=== PATIENT | female | born 1970 | race Caucasian/White ===

== ENCOUNTER 2018-08-10 19:44 | Inpatient (IN) ==
[2018-08-10] MEDS ORDERED: 0.9 % Sodium Chloride 1,000 ML IVC ONE ×2 (19:55→22:04)
--- NOTE | 2018-08-10 20:18 | Emergency Department Note ---
Disposition Clinical Impression: Auditory hallucination Suicide attempt by multiple drug overdose Qualifiers: Encounter type: initial encounter Qualified Code(s): T50.902A - Poisoning by unspecified drugs, medicaments and biological substances, intentional self-harm, initial encounter Acetaminophen overdose Qualifiers: Encounter type: initial encounter Injury intent: intentional self-harm Qualified Code(s): T39.1X2A - Poisoning by 4-Aminophenol derivatives, inte ntional self-harm, initial encounter Leukocytosis Qualifiers: Leukocytosis type: unspecified Qualified Code(s): D72.829 - Elevated white blood cell count, unspecified Depression Qualifiers: Depression Type: unspecified Qualified Code(s): F32.9 - Major depressive disorder, single episode, unspecified Disposition: Still a Patient Condition: Serious Referrals: Chelsea Kraus CNP [Primary Care Provider] - Time of Disposition: 21:57 General Adult HPI - General Stated complaint: OD SI Time Seen by Provider: 08/10/18 19:53 Source: patient Limitations: no limitations Nursing Notes Reviewed: Yes Vital Signs Reviewed: Yes - History of Present Illness HPI Narrative: Patient is a 48-year-old female that presents emergency department for possible overdose and suicidal ideation. Patient states that she is been feeling depressed and was hearing voices been telling her not to take the pills however she felt like they are using reverse psychology so she took multiple lorazepam, Vicodin, gabapentin, Tylenol PM and lisinopril as well as metoprolol. Patient states that she is unsure exactly how much she took of each but estimates that she took 10-12 gabapentin, 4 Vicodin, 4Tylenol, and l 20 lisinopril and 20 metoprolol. Patient states that she is not having any homicidal ideations. Patient denies any visual hallucinations. Patient did report that she was having auditory hallucinations. Patient has ever having to have previous admission to the hospital for psychiatric reasons. - Related Data Home Medications Medication Instructions Recorded Confirmed RX: LORazepam [Ativan] 0.5 mg PO BID PRN 05/06/17 05/06/17 RX: Lisinopril [Zestril] 20 mg PO BID 05/06/17 05/06/17 RX: Metoprolol [Lopressor] 25 mg PO BID 05/06/17 05/06/17 Previous Rx's Medication Instructions Recorded RX: Nicotine Patch [Nicoderm] 14 mg TD DAILY #30 patch.td24 05/06/17 RX: Omeprazole [PriLOSEC] 20 mg PO DAILY@0630 #30 capsule. 05/06/17 RX: Sucralfate [Carafate] 1 gm PO QIDAC #120 tablet 05/06/17 Allergies Allergy/AdvReac Type Severity Reaction Status Date / Time hydrochlorothiazide Allergy See Verified 05/05/17 23:00 Comments Penicillins Allergy See Verified 05/05/17 23:00 Comments Sulfa (Sulfonamide Allergy See Verified 05/05/17 23:00 Antibiotics) Comments codeine AdvReac Nausea Verified 05/05/17 23:00 All systems ED: reviewed and negative except as stated. Constitutional: Reports: other (Getting tired) Cardiovascular: Denies: chest pain Respiratory: Denies: dyspnea Gastrointestinal: Denies: abdominal pain, nausea Past Medical History - Past Medical History Medical history: Reports: hypertension Surgical history: Reports: , cholecystectomy Psychiatric history: Reports: anxiety, depression - Social History Smoking Status: Current every day smoker Smokeless Tobacco Status: No Alcohol use: Reports: none Drug use: Reports: none Physical Exam - General Limitations: no limitations General appearance: alert, in no apparent distress - Head Head exam: atraumatic, normocephalic - Eye Eye exam: Present: normal appearance, EOMI - Neck Neck exam: Present: normal inspection, full ROM, trachea midline - Respiratory Respiratory exam: Present: normal lung sounds bilaterally. Absent: respiratory distress, wheezes - Cardiovascular Cardiovascular exam: Present: regular rate, normal rhythm, normal heart sounds, +S1, +S2 - Abdominal Exam Abdominal exam: Present: soft, Non-Tender, normal bowel sounds - Neurological Exam Neurological exam: Present: alert, oriented X3 - Psychiatric Psychiatric exam: Present: depressed, flat affect - Skin Skin exam: Present: warm, dry, intact Course Vital Signs O2 Sat by Pulse Oximetry 98 08/10/18 20:26 Temperature 98.2 F 08/10/18 21:15 Pulse Rate 72 08/10/18 21:15 Respiratory Rate 16 08/10/18 21:15 Blood Pressure 144/77 08/10/18 21:15 O2 Sat by Pulse Oximetry 98 08/10/18 21:15 Oxygen Delivery Oxygen Delivery Room Air Medical Decision Making - MDM Narrative Medical decision making narrative: Due to the patient presenting to the emergency department with reports of suicidal ideations and drug ingestion laboratory testing including urine tox, acetaminophen, salicylate, ethanol were obtained. The patient was given Narcan and IV fluids. The poison center was contacted and notified of the ingestions. Their main concern was the beta walker and possible Tylenol ingestion with the Vicodin and Tylenol PM. They recommended starting IV fluids and continue to monitor the patient. The patient has been stable throughout her initial stay here in the emergency department. Her laboratory testing has started to come back and her acetaminophen level shows 60. This is at approximately one hour level. We did contact poison control again to update them on the findings of the acetaminophen level and they had recommended continuing supportive care and repeating the level at 4 hours. If the level was greater than 150 we will provide the patient with NAC. They did not feel that the patient would need to be transferred due to the patient's liver enzymes being normal. We have the ability to provide the patient with NAC here at [facility] so there is not the necessity to transfer the patient to another facility. Due to the patient requiring a repeat acetaminophen level at 4 hours the patient will be signed out to the night team of Dr. Flores and Dr. Alfaro. Please see their documentation for further medical decision making and final disposition of the patient. - Medical Records Medical records reviewed: Yes I reviewed the patient's medical records. - Lab Data Lab results reviewed: Yes I reviewed the patient's lab results. Result diagrams: 08/10/18 20:09 08/10/18 20:09 Lab Results 08/10/18 08/10/18 08/10/18 Range/Units 20:09 20:09 20:09 WBC 11.7 H (4.3-11.1) K/mcL RBC 5.10 H (3.82-4.97) M/mcL Hgb 16.5 H (11.5-15.4) g/dL Hct 47.7 H (35.3-44.9) % MCV 93.5 (83.0-100.0) fL MCH 32.4 (28.0-33.3) pg MCHC 34.6 (31.6-35.5) g/dL RDW 13.5 (11.5-14.5) % Plt Count 253 (140-400) K/mcL MPV 9.5 (9.4-12.4) fL Immature Gran % 0.4 (0-4) % Seg Neutrophils % 72.7 % Lymphocytes % 20.5 % Monocytes % 5.7 % Eosinophils % 0.3 % Basophils % 0.4 % Neutrophils # 8.5 (1.6-8.9) K/mcL Lymphocytes # 2.4 (0.6-4.6) K/mcL Monocytes # 0.7 (0.0-1.3) K/mcL Eosinophils # 0.0 (0.0-0.6) K/mcL Basophils # 0.1 (0.0-0.2) K/mcL PT (9.4-12.1) Seconds INR Sodium 140 (136-145) mEq/L Potassium 3.5 (3.5-5.1) mEq/L Chloride 105 (98-107) mEq/L Carbon Dioxide 26 (23-29) mEq/L BUN 9 (6-20) mg/dL Creatinine 0.80 (0.60-1.20) mg/dL Est GFR ( Amer) > 60 (> 60) Est GFR (Non-Af Amer) > 60 (> 60) BUN/Creatinine Ratio 11 (6-26) Glucose 107 H (70-105) mg/dL Calculated Osmolality 289 (280-300) Calcium 9.0 (8.6-10.3) mg/dL Total Bilirubin 0.6 (0.3-1.0) mg/dL Direct Bilirubin 0.1 (0.0-0.2) mg/dL Indirect Bilirubin 0.5 (0.0-1.2) mg/dL AST 21 (13-39) Units/L ALT 18 (7-52) Units/L Alkaline Phosphatase 95 (34-104) Units/L Troponin I < 0.03 (< 0.04) ng/mL Serum Total Protein 6.0 L (6.4-8.9) g/dL Albumin 4.2 (3.5-5.7) g/dL Globulin 1.8 L (2.4-3.5) g/dL Albumin/Globulin Ratio 2.3 H (1.1-2.2) TSH 2.096 (0.340-5.600) mcIU/mL Salicylates < 2.5 L (15.0-30.0) mg/dL Acetaminophen 60 H (10-20) mcg/mL Ethyl Alcohol < 10 (Less than 10) mg/dL 08/10/18 Range/Units 20:09 WBC (4.3-11.1) K/mcL RBC (3.82-4.97) M/mcL Hgb (11.5-15.4) g/dL Hct (35.3-44.9) % MCV (83.0-100.0) fL MCH (28.0-33.3) pg MCHC (31.6-35.5) g/dL RDW (11.5-14.5) % Plt Count (140-400) K/mcL MPV (9.4-12.4) fL Immature Gran % (0-4) % Seg Neutrophils % % Lymphocytes % % Monocytes % % Eosinophils % % Basophils % % Neutrophils # (1.6-8.9) K/mcL Lymphocytes # (0.6-4.6) K/mcL Monocytes # (0.0-1.3) K/mcL Eosinophils # (0.0-0.6) K/mcL Basophils # (0.0-0.2) K/mcL PT 11.4 (9.4-12.1) Seconds INR 1.0 Sodium (136-145) mEq/L Potassium (3.5-5.1) mEq/L Chloride (98-107) mEq/L Carbon Dioxide (23-29) mEq/L BUN (6-20) mg/dL Creatinine (0.60-1.20) mg/dL Est GFR ( Amer) (> 60) Est GFR (Non-Af Amer) (> 60) BUN/Creatinine Ratio (6-26) Glucose (70-105) mg/dL Calculated Osmolality (280-300) Calcium (8.6-10.3) mg/dL Total Bilirubin (0.3-1.0) mg/dL Direct Bilirubin (0.0-0.2) mg/dL Indirect Bilirubin (0.0-1.2) mg/dL AST (13-39) Units/L ALT (7-52) Units/L Alkaline Phosphatase (34-104) Units/L Troponin I (< 0.04) ng/mL Serum Total Protein (6.4-8.9) g/dL Albumin (3.5-5.7) g/dL Globulin (2.4-3.5) g/dL Albumin/Globulin Ratio (1.1-2.2) TSH (0.340-5.600) mcIU/mL Salicylates (15.0-30.0) mg/dL Acetaminophen (10-20) mcg/mL Ethyl Alcohol (Less than 10) mg/dL - Radiology Data Radiology results reviewed: Yes I reviewed the patient's radiology results. Chest X-Ray 08/10/18 19:56 IMPRESSION: No acute cardiopulmonary disease. D/ / Pj Boateng MD / Pj Boateng MD Interpreting Provider: Pj Boateng MD X-Ray 08/10/18 20:05 IMPRESSION: Nondiagnostic abdominal examination. D/ / Pj Boateng MD / Pj Boateng MD Interpreting Provider: Pj Boateng MD - EKG Data EKG #1 EKG attestation: Yes I reviewed and interpreted this EKG. EKG results narrative: EKG shows a sinus rhythm and rate of 81 bpm, WI interval of this is 154, QRS duration 83, QTC of 448. No evidence of STEMI and EKG. Attestation Statement - Attestation Attestation: I examined this patient and my medical decision making was reviewed with the Resident Physician. I agree with the documented findings, disposition and treatment plan as described except to the extent set forth below. We independently had [id number] contact with the patient. Patient presents for evaluation after overdose. Patient states she was trying to hurt herself. Patient was placed on suicide watch. She did state that she took multiple medications including gabapentin, Vicodin, lorazepam, lisinopril, metoprolol and Tylenol PM. Medical screening labs including acetaminophen and liver enzymes ordered. Patient will be watched in regards to her mental status and vital signs. Poison control be called. Patient will likely require admission to the hospital service prior to mental health evaluation. No acute distress, conversational, gets upset when talking about why she took the medications. Regular rhythm, clear to auscultation bilaterally, abdomen soft nontender palpation, no peripheral edema. Awake alert and oriented 3. No respiratory distress. No respiratory compromise.
[2018-08-10 20:21] LABS: Basophils # 0.1 K/mcL (0.0-0.2); Basophils % 0.4 %; Eosinophils % 0.3 %; Hematocrit 47.7 % (35.3-44.9); Hemoglobin 16.5 g/dL (11.5-15.4); Immature Granulocytes % 0.4 % (0-4); Lymphocytes # 2.4 K/mcL (0.6-4.6); Lymphocytes % 20.5 %; Mean Corpuscular HGB Conc 34.6 g/dL (31.6-35.5); Mean Corpuscular Hemoglobin 32.4 pg (28.0-33.3); Mean Corpuscular Volume 93.5 fL (83.0-100.0); Mean Platelet Volume 9.5 fL (9.4-12.4); Monocytes # 0.7 K/mcL (0.0-1.3); Monocytes % 5.7 %; Neutrophils # 8.5 K/mcL (1.6-8.9); Platelet Count 253 K/mcL (140-400); Red Cell Distribution Width 13.5 % (11.5-14.5); Segmented Neutrophils % 72.7 %
[2018-08-10] MEDS ORDERED: Naloxone 0.4 MG/ML INJ IVP ONE (20:29)
[2018-08-10 20:42] LABS: Acetaminophen 60 mcg/mL (10-20); Alanine Aminotransferase 18 Units/L (7-52); Albumin 4.2 g/dL (3.5-5.7); Albumin/Globulin Ratio 2.3 (1.1-2.2); Alkaline Phosphatase 95 Units/L (34-104); Aspartate Amino Transferase 21 Units/L (13-39); BUN/Creatinine Ratio 11 (6-26); Bilirubin,Direct 0.1 mg/dL (0.0-0.2); Bilirubin,Indirect 0.5 mg/dL (0.0-1.2); Bilirubin,Total 0.6 mg/dL (0.3-1.0); Blood Urea Nitrogen 9 mg/dL (6-20); Carbon Dioxide 26 mEq/L (23-29); Chloride 105 mEq/L (98-107); Ethanol < 10 mg/dL (Less than 10); Globulin 1.8 g/dL (2.4-3.5); Glucose 107 mg/dL (70-105); Osmolality,Calculated 289 (280-300); Potassium 3.5 mEq/L (3.5-5.1); Salicylate < 2.5 mg/dL (15.0-30.0); Sodium 140 mEq/L (136-145); eGFR For Non-African Americans > 60 (> 60)
[2018-08-10 20:44] LABS: Troponin I < 0.03 ng/mL (< 0.04)
[2018-08-10 20:57] LABS: Thyroid Stimulating Hormone 2.096 mcIU/mL (0.340-5.600)
[2018-08-10 21:14] LABS: Prothrombin Time 11.4 Seconds (9.4-12.1)
[2018-08-10] MEDS ORDERED: 0.9 % Sodium Chloride 1,000 ML ONE (21:59)
[2018-08-10 22:35] LABS: Bilirubin,Urine Negative (Negative); Blood,Urine Trace (Negative); Clarity,Urine Clear (Clear); Color,Urine Yellow (Yellow); Glucose,Urine (UA) Normal (Normal); Ketones,Urine Negative (Negative); Leukocyte Esterase,Urine Trace (Negative); Nitrite,Urine Negative (Negative); PH,Urine 5.5 pH Units (5.0-8.0); Protein,Urine 30 mg/dL (Neg-Trace); Specific Gravity,Urine 1.017 (1.010-1.025); Urobilinogen,Urine Normal (Normal)
[2018-08-10 22:37] LABS: Hyaline Casts,Urine Moderate per lpf (None-Few); Squamous Epithelial Cell,Urine Many per lpf (None-Few)
[2018-08-10 22:47] LABS: Amphetamine Screen,Urine Negative ng/mL (Cutoff=1000); Barbiturate Screen,Urine Negative ng/mL (Cutoff=200); Benzodiazepines Screen,Urine Negative ng/mL (Cutoff=200); Cannabinoid Screen,Urine Negative ng/mL (Cutoff = 50); Cocaine Screen,Urine Negative ng/mL (Cutoff= 300); Opiate Screen,Urine Positive ng/mL (Cutoff=300); Phencyclidine Screen,Urine Negative ng/mL (Cutoff=25)
[2018-08-10 22:51] LABS: Bacteria,Urine Few per hpf (None-Few)
--- NOTE | 2018-08-10 23:41 | Emergency Department Note ---
Overdose - MDM Narrative Medical decision making narrative: Accepted by Dr. Buckley. - Lab Data Lab results reviewed: Yes I reviewed the patient's lab results. Result diagrams: 08/10/18 20:09 08/10/18 20:09 Lab Results 08/10/18 08/10/18 08/10/18 Range/Units 20:09 20:09 20:09 WBC 11.7 H (4.3-11.1) K/mcL RBC 5.10 H (3.82-4.97) M/mcL Hgb 16.5 H (11.5-15.4) g/dL Hct 47.7 H (35.3-44.9) % MCV 93.5 (83.0-100.0) fL MCH 32.4 (28.0-33.3) pg MCHC 34.6 (31.6-35.5) g/dL RDW 13.5 (11.5-14.5) % Plt Count 253 (140-400) K/mcL MPV 9.5 (9.4-12.4) fL Immature Gran % 0.4 (0-4) % Seg Neutrophils % 72.7 % Lymphocytes % 20.5 % Monocytes % 5.7 % Eosinophils % 0.3 % Basophils % 0.4 % Neutrophils # 8.5 (1.6-8.9) K/mcL Lymphocytes # 2.4 (0.6-4.6) K/mcL Monocytes # 0.7 (0.0-1.3) K/mcL Eosinophils # 0.0 (0.0-0.6) K/mcL Basophils # 0.1 (0.0-0.2) K/mcL PT (9.4-12.1) Seconds INR Sodium 140 (136-145) mEq/L Potassium 3.5 (3.5-5.1) mEq/L Chloride 105 (98-107) mEq/L Carbon Dioxide 26 (23-29) mEq/L BUN 9 (6-20) mg/dL Creatinine 0.80 (0.60-1.20) mg/dL Est GFR ( Amer) > 60 (> 60) Est GFR (Non-Af Amer) > 60 (> 60) BUN/Creatinine Ratio 11 (6-26) Glucose 107 H (70-105) mg/dL Calculated Osmolality 289 (280-300) Calcium 9.0 (8.6-10.3) mg/dL Total Bilirubin 0.6 (0.3-1.0) mg/dL Direct Bilirubin 0.1 (0.0-0.2) mg/dL Indirect Bilirubin 0.5 (0.0-1.2) mg/dL AST 21 (13-39) Units/L ALT 18 (7-52) Units/L Alkaline Phosphatase 95 (34-104) Units/L Troponin I < 0.03 (< 0.04) ng/mL Serum Total Protein 6.0 L (6.4-8.9) g/dL Albumin 4.2 (3.5-5.7) g/dL Globulin 1.8 L (2.4-3.5) g/dL Albumin/Globulin Ratio 2.3 H (1.1-2.2) TSH 2.096 (0.340-5.600) mcIU/mL Urine Color (Yellow) Urine Clarity (Clear) Urine pH (5.0-8.0) pH Units Ur Specific [place] (1.010-1.025) Urine Protein (Neg-Trace) mg/dL Urine Glucose (UA) (Normal) mg/dL Urine Ketones (Negative) mg/dL Urine Blood (Negative) Urine Nitrite (Negative) Urine Bilirubin (Negative) Urine Urobilinogen (Normal) mg/dL Ur Leukocyte Esterase (Negative) Urine Microscopic RBC (0-3) per hpf Urine Microscopic WBC (0-3) per hpf Ur Squamous Epith Cells (None-Few) per lpf Urine Bacteria (None-Few) per hpf Hyaline Casts (None-Few) per lpf Urine Test (Negative) Salicylates < 2.5 L (15.0-30.0) mg/dL Urine Opiates Screen (Vimxwa=349) ng/mL Acetaminophen 60 H (10-20) mcg/mL Ur Barbiturates Screen (Dqfuie=579) ng/mL Ur Phencyclidine Scrn (Cutoff=25) ng/mL Ur Amphetamines Screen (Knbuxz=8160) ng/mL U Benzodiazepines Scrn (Qctzfn=546) ng/mL Urine Cocaine Screen (Cutoff= 300) ng/mL U Marijuana (THC) Screen (Cutoff = 50) ng/mL Ur Drug Screen Interp Ethyl Alcohol < 10 (Less than 10) mg/dL 08/10/18 08/10/18 08/10/18 Range/Units 20:09 22:08 22:08 WBC (4.3-11.1) K/mcL RBC (3.82-4.97) M/mcL Hgb (11.5-15.4) g/dL Hct (35.3-44.9) % MCV (83.0-100.0) fL MCH (28.0-33.3) pg MCHC (31.6-35.5) g/dL RDW (11.5-14.5) % Plt Count (140-400) K/mcL MPV (9.4-12.4) fL Immature Gran % (0-4) % Seg Neutrophils % % Lymphocytes % % Monocytes % % Eosinophils % % Basophils % % Neutrophils # (1.6-8.9) K/mcL Lymphocytes # (0.6-4.6) K/mcL Monocytes # (0.0-1.3) K/mcL Eosinophils # (0.0-0.6) K/mcL Basophils # (0.0-0.2) K/mcL PT 11.4 (9.4-12.1) Seconds INR 1.0 Sodium (136-145) mEq/L Potassium (3.5-5.1) mEq/L Chloride (98-107) mEq/L Carbon Dioxide (23-29) mEq/L BUN (6-20) mg/dL Creatinine (0.60-1.20) mg/dL Est GFR ( Amer) (> 60) Est GFR (Non-Af Amer) (> 60) BUN/Creatinine Ratio (6-26) Glucose (70-105) mg/dL Calculated Osmolality (280-300) Calcium (8.6-10.3) mg/dL Total Bilirubin (0.3-1.0) mg/dL Direct Bilirubin (0.0-0.2) mg/dL Indirect Bilirubin (0.0-1.2) mg/dL AST (13-39) Units/L ALT (7-52) Units/L Alkaline Phosphatase (34-104) Units/L Troponin I (< 0.04) ng/mL Serum Total Protein (6.4-8.9) g/dL Albumin (3.5-5.7) g/dL Globulin (2.4-3.5) g/dL Albumin/Globulin Ratio (1.1-2.2) TSH (0.340-5.600) mcIU/mL Urine Color Yellow (Yellow) Urine Clarity Clear (Clear) Urine pH 5.5 (5.0-8.0) pH Units Ur Specific [place] 1.017 (1.010-1.025) Urine Protein 30 H (Neg-Trace) mg/dL Urine Glucose (UA) Normal (Normal) mg/dL Urine Ketones Negative (Negative) mg/dL Urine Blood Trace H (Negative) Urine Nitrite Negative (Negative) Urine Bilirubin Negative (Negative) Urine Urobilinogen Normal (Normal) mg/dL Ur Leukocyte Esterase Trace H (Negative) Urine Microscopic RBC 3-5 H (0-3) per hpf Urine Microscopic WBC 3-5 H (0-3) per hpf Ur Squamous Epith Cells Many H (None-Few) per lpf Urine Bacteria Few (None-Few) per hpf Hyaline Casts Moderate H (None-Few) per lpf Urine Test (Negative) Salicylates (15.0-30.0) mg/dL Urine Opiates Screen Positive H (Hcldqt=429) ng/mL Acetaminophen (10-20) mcg/mL Ur Barbiturates Screen Negative (Bdazqz=596) ng/mL Ur Phencyclidine Scrn Negative (Cutoff=25) ng/mL Ur Amphetamines Screen Negative (Ofinaz=1022) ng/mL U Benzodiazepines Scrn Negative (Sjucry=024) ng/mL Urine Cocaine Screen Negative (Cutoff= 300) ng/mL U Marijuana (THC) Screen Negative (Cutoff = 50) ng/mL Ur Drug Screen Interp See Below Ethyl Alcohol (Less than 10) mg/dL 08/10/18 08/10/18 Range/Units 22:08 22:58 WBC (4.3-11.1) K/mcL RBC (3.82-4.97) M/mcL Hgb (11.5-15.4) g/dL Hct (35.3-44.9) % MCV (83.0-100.0) fL MCH (28.0-33.3) pg MCHC (31.6-35.5) g/dL RDW (11.5-14.5) % Plt Count (140-400) K/mcL MPV (9.4-12.4) fL Immature Gran % (0-4) % Seg Neutrophils % % Lymphocytes % % Monocytes % % Eosinophils % % Basophils % % Neutrophils # (1.6-8.9) K/mcL Lymphocytes # (0.6-4.6) K/mcL Monocytes # (0.0-1.3) K/mcL Eosinophils # (0.0-0.6) K/mcL Basophils # (0.0-0.2) K/mcL PT (9.4-12.1) Seconds INR Sodium (136-145) mEq/L Potassium (3.5-5.1) mEq/L Chloride (98-107) mEq/L Carbon Dioxide (23-29) mEq/L BUN (6-20) mg/dL Creatinine (0.60-1.20) mg/dL Est GFR ( Amer) (> 60) Est GFR (Non-Af Amer) (> 60) BUN/Creatinine Ratio (6-26) Glucose (70-105) mg/dL Calculated Osmolality (280-300) Calcium (8.6-10.3) mg/dL Total Bilirubin (0.3-1.0) mg/dL Direct Bilirubin (0.0-0.2) mg/dL Indirect Bilirubin (0.0-1.2) mg/dL AST (13-39) Units/L ALT (7-52) Units/L Alkaline Phosphatase (34-104) Units/L Troponin I (< 0.04) ng/mL Serum Total Protein (6.4-8.9) g/dL Albumin (3.5-5.7) g/dL Globulin (2.4-3.5) g/dL Albumin/Globulin Ratio (1.1-2.2) TSH (0.340-5.600) mcIU/mL Urine Color (Yellow) Urine Clarity (Clear) Urine pH (5.0-8.0) pH Units Ur Specific [place] (1.010-1.025) Urine Protein (Neg-Trace) mg/dL Urine Glucose (UA) (Normal) mg/dL Urine Ketones (Negative) mg/dL Urine Blood (Negative) Urine Nitrite (Negative) Urine Bilirubin (Negative) Urine Urobilinogen (Normal) mg/dL Ur Leukocyte Esterase (Negative) Urine Microscopic RBC (0-3) per hpf Urine Microscopic WBC (0-3) per hpf Ur Squamous Epith Cells (None-Few) per lpf Urine Bacteria (None-Few) per hpf Hyaline Casts (None-Few) per lpf Urine Test Negative (Negative) Salicylates (15.0-30.0) mg/dL Urine Opiates Screen (Vazcvd=647) ng/mL Acetaminophen 35 H (10-20) mcg/mL Ur Barbiturates Screen (Tiqvjf=774) ng/mL Ur Phencyclidine Scrn (Cutoff=25) ng/mL Ur Amphetamines Screen (Hsdrjt=1957) ng/mL U Benzodiazepines Scrn (Jbvcuq=654) ng/mL Urine Cocaine Screen (Cutoff= 300) ng/mL U Marijuana (THC) Screen (Cutoff = 50) ng/mL Ur Drug Screen Interp Ethyl Alcohol (Less than 10) mg/dL Overdose HPI - General Chief Complaint: ED Overdose Stated Complaint: OD SI Time Seen by Provider: 08/10/18 19:53 Source: patient Limitations: no limitations - History of Present Illness HPI Narrative: Patient who was signed out by day team. Please see their note for full history of present illness to include medications that the patient overdosed on an pill counts. Briefly, this is a 48-year-old female with history of psychiatric disease with suicidal ideation and attempt with the patient took multi drug overdose. This included Tylenol as well as Vicodin, gabapentin and old lorazepam. Initial Tylenol level was elevated. Repeat four-hour here on reevaluation was 35. Patient not requiring NEC. Patient remained somnolent but arousable on evaluation. GCS of 13. Patient's blood pressure remains map above 65 as well as rate in the 70s. There was concern that the patient apparently took metoprolol as well as lisinopril. Poison control involved. The patient will be admitted to intensive care at this time for close monitoring. Family made aware and agrees to plan. Patient given 2 L of IV fluids. The patient remains to protect her airway with 100% O2 saturations on room air. The patient will not be intubated unless she begins to decompensate. - Related Data Home Medications Medication Instructions Recorded Confirmed LORazepam [Ativan] 0.5 mg PO BID PRN 05/06/17 05/06/17 Lisinopril [Zestril] 20 mg PO BID 05/06/17 05/06/17 Metoprolol [Lopressor] 25 mg PO BID 05/06/17 05/06/17 Previous Rx's Medication Instructions Recorded Nicotine Patch [Nicoderm] 14 mg TD DAILY #30 patch.td24 05/06/17 Omeprazole [PriLOSEC] 20 mg PO DAILY@0630 #30 capsule. 05/06/17 Sucralfate [Carafate] 1 gm PO QIDAC #120 tablet 05/06/17 Allergies Allergy/AdvReac Type Severity Reaction Status Date / Time hydrochlorothiazide Allergy See Verified 05/05/17 23:00 Comments Penicillins Allergy See Verified 05/05/17 23:00 Comments Sulfa (Sulfonamide Allergy See Verified 05/05/17 23:00 Antibiotics) Comments codeine AdvReac Nausea Verified 05/05/17 23:00 All systems ED: reviewed and negative except as stated. Constitutional: Reports: other (Getting tired) Cardiovascular: Denies: chest pain Respiratory: Denies: dyspnea Gastrointestinal: Denies: abdominal pain, nausea Past Medical History - Past Medical History Source: obtained from family Medical history: Reports: hypertension Surgical history: Reports: , cholecystectomy Psychiatric history: Reports: anxiety, depression - Social History Smoking Status: Current every day smoker Smokeless Tobacco Status: No Alcohol use: Reports: none Drug use: Reports: none Physical Exam - General Limitations: altered mental status General appearance: other (somnolent) - Head Head exam: atraumatic, normocephalic, normal inspection - Eye Eye exam: Present: normal appearance, PERRL, EOMI - ENT ENT exam: normal exam, normal oropharynx, mucous membranes moist - Neck Neck exam: Present: normal inspection, full ROM, trachea midline - Chest Chest inspection: Present: normal inspection, symmetric chest wall rise - Respiratory Respiratory exam: Present: normal lung sounds bilaterally - Cardiovascular Cardiovascular exam: Present: regular rate, normal rhythm, normal heart sounds - Abdominal Exam Abdominal exam: Present: soft. Absent: distention, guarding, rebound - Extremities Exam Extremities exam: Present: normal inspection, full ROM. Absent: tenderness, pedal edema - Expanded Neurological Exam Coma Scale Eye Opening: To Pain Coma Scale Motor Response: Localizes to Pain Coma Scale Verbal Response: Confused Coma Scale Total: 11 Course Vital Signs O2 Sat by Pulse Oximetry 98 08/10/18 20:26 Temperature 97.8 F 08/10/18 23:45 Pulse Rate 70 08/10/18 23:45 Respiratory Rate 11 08/10/18 23:45 Blood Pressure 145/93 08/10/18 23:45 O2 Sat by Pulse Oximetry 100 08/10/18 23:45 Oxygen Delivery Oxygen Delivery Room Air Disposition Clinical Impression: Auditory hallucination Suicide attempt by multiple drug overdose Qualifiers: Encounter type: initial encounter Qualified Code(s): T50.902A - Poisoning by unspecified drugs, medicaments and biological substances, intentional self-harm, initial encounter Acetaminophen overdose Qualifiers: Encounter type: initial encounter Injury intent: intentional self-harm Qualified Code(s): T39.1X2A - Poisoning by 4-Aminophenol derivatives, intentional self-harm, initial encounter Leukocytosis Qualifiers: Leukocytosis type: unspecified Qualified Code(s): D72.829 - Elevated white blood cell count, unspecified Depression Qualifiers: Depression Type: unspecified Qualified Code(s): F32.9 - Major depressive disorder, single episode, unspecified Disposition: Admitted As Inpatient Condition: Undetermined Referrals: Chelsea Kraus CNP [Primary Care Provider] - Time of Disposition: 00:19
--- NOTE | 2018-08-11 00:02 | Emergency Department Note ---
Disposition Clinical Impression: Auditory hallucination Suicide attempt by multiple drug overdose Qualifiers: Encounter type: initial encounter Qualified Code(s): T50.902A - Poisoning by unspecified drugs, medicaments and biological substances, intentional self-harm, initial encounter Acetaminophen overdose Qualifiers: Encounter type: initial encounter Injury intent: intentional self-harm Qualified Code(s): T39.1X2A - Poisoning by 4-Aminophenol derivatives, inte ntional self-harm, initial encounter Leukocytosis Qualifiers: Leukocytosis type: unspecified Qualified Code(s): D72.829 - Elevated white blood cell count, unspecified Depression Qualifiers: Depression Type: unspecified Qualified Code(s): F32.9 - Major depressive disorder, single episode, unspecified Disposition: Admitted As Inpatient Condition: Serious General Adult HPI - General Chief complaint: ED Overdose Stated complaint: OD SI Time Seen by Provider: 08/10/18 19:53 Source: patient Mode of arrival: private vehicle Limitations: altered mental status Nursing Notes Reviewed: Yes Vital Signs Reviewed: Yes - History of Present Illness Pain Scale: 0 - Related Data Home Medications Medication Instructions Recorded Confirmed LORazepam [Ativan] 0.5 mg PO BID PRN 05/06/17 05/06/17 Lisinopril [Zestril] 20 mg PO BID 05/06/17 05/06/17 Metoprolol [Lopressor] 25 mg PO BID 05/06/17 05/06/17 Previous Rx's Medication Instructions Recorded Nicotine Patch [Nicoderm] 14 mg TD DAILY #30 patch.td24 05/06/17 Omeprazole [PriLOSEC] 20 mg PO DAILY@0630 #30 capsule. 05/06/17 Sucralfate [Carafate] 1 gm PO QIDAC #120 tablet 05/06/17 Allergies Allergy/AdvReac Type Severity Reaction Status Date / Time hydrochlorothiazide Allergy See Verified 05/05/17 23:00 Comments Penicillins Allergy See Verified 05/05/17 23:00 Comments Sulfa (Sulfonamide Allergy See Verified 05/05/17 23:00 Antibiotics) Comments codeine AdvReac Nausea Verified 05/05/17 23:00 Constitutional: Reports: other (Getting tired) Cardiovascular: Denies: chest pain Respiratory: Denies: dyspnea Gastrointestinal: Denies: abdominal pain, nausea Past Medical History - Past Medical History Medical history: Reports: hypertension Surgical history: Reports: , cholecystectomy Psychiatric history: Reports: anxiety, depression - Social History Smoking Status: Current every day smoker Smokeless Tobacco Status: No Alcohol use: Reports: none Drug use: Reports: none Physical Exam - General Limitations: altered mental status General appearance: other (somnolent) Course Vital Signs O2 Sat by Pulse Oximetry 98 08/10/18 20:26 Temperature 97.9 F 08/11/18 06:00 Pulse Rate 63 08/11/18 06:00 Respiratory Rate 16 08/11/18 06:00 Blood Pressure 161/96 08/11/18 06:00 O2 Sat by Pulse Oximetry 99 08/11/18 06:00 Oxygen Delivery Oxygen Delivery Room Air Medical Decision Making - Medical Records Medical records reviewed: Yes I reviewed the patient's medical records. - Lab Data Lab results reviewed: Yes I reviewed the patient's lab results. Result diagrams: 08/11/18 04:10 08/11/18 04:10 Lab Results 08/10/18 08/10/18 08/10/18 Range/Units 20:09 20:09 20:09 WBC 11.7 H (4.3-11.1) K/mcL RBC 5.10 H (3.82-4.97) M/mcL Hgb 16.5 H (11.5-15.4) g/dL Hct 47.7 H (35.3-44.9) % MCV 93.5 (83.0-100.0) fL MCH 32.4 (28.0-33.3) pg MCHC 34.6 (31.6-35.5) g/dL RDW 13.5 (11.5-14.5) % Plt Count 253 (140-400) K/mcL MPV 9.5 (9.4-12.4) fL Immature Gran % 0.4 (0-4) % Seg Neutrophils % 72.7 % Lymphocytes % 20.5 % Monocytes % 5.7 % Eosinophils % 0.3 % Basophils % 0.4 % Neutrophils # 8.5 (1.6-8.9) K/mcL Lymphocytes # 2.4 (0.6-4.6) K/mcL Monocytes # 0.7 (0.0-1.3) K/mcL Eosinophils # 0.0 (0.0-0.6) K/mcL Basophils # 0.1 (0.0-0.2) K/mcL PT (9.4-12.1) Seconds INR Sodium 140 (136-145) mEq/L Potassium 3.5 (3.5-5.1) mEq/L Chloride 105 (98-107) mEq/L Carbon Dioxide 26 (23-29) mEq/L BUN 9 (6-20) mg/dL Creatinine 0.80 (0.60-1.20) mg/dL Est GFR ( Amer) > 60 (> 60) Est GFR (Non-Af Amer) > 60 (> 60) BUN/Creatinine Ratio 11 (6-26) Glucose 107 H (70-105) mg/dL Calculated Osmolality 289 (280-300) Calcium 9.0 (8.6-10.3) mg/dL Total Bilirubin 0.6 (0.3-1.0) mg/dL Direct Bilirubin 0.1 (0.0-0.2) mg/dL Indirect Bilirubin 0.5 (0.0-1.2) mg/dL AST 21 (13-39) Units/L ALT 18 (7-52) Units/L Alkaline Phosphatase 95 (34-104) Units/L Troponin I < 0.03 (< 0.04) ng/mL Serum Total Protein 6.0 L (6.4-8.9) g/dL Albumin 4.2 (3.5-5.7) g/dL Globulin 1.8 L (2.4-3.5) g/dL Albumin/Globulin Ratio 2.3 H (1.1-2.2) TSH 2.096 (0.340-5.600) mcIU/mL Urine Color (Yellow) Urine Clarity (Clear) Urine pH (5.0-8.0) pH Units Ur Specific [place] (1.010-1.025) Urine Protein (Neg-Trace) mg/dL Urine Glucose (UA) (Normal) mg/dL Urine Ketones (Negative) mg/dL Urine Blood (Negative) Urine Nitrite (Negative) Urine Bilirubin (Negative) Urine Urobilinogen (Normal) mg/dL Ur Leukocyte Esterase (Negative) Urine Microscopic RBC (0-3) per hpf Urine Microscopic WBC (0-3) per hpf Ur Squamous Epith Cells (None-Few) per lpf Urine Bacteria (None-Few) per hpf Hyaline Casts (None-Few) per lpf Urine Test (Negative) Salicylates < 2.5 L (15.0-30.0) mg/dL Urine Opiates Screen (Ipctpq=347) ng/mL Acetaminophen 60 H (10-20) mcg/mL Ur Barbiturates Screen (Rcgqcr=174) ng/mL Ur Phencyclidine Scrn (Cutoff=25) ng/mL Ur Amphetamines Screen (Bthudt=7861) ng/mL U Benzodiazepines Scrn (Nmoouw=213) ng/mL Urine Cocaine Screen (Cutoff= 300) ng/mL U Marijuana (THC) Screen (Cutoff = 50) ng/mL Ur Drug Screen Interp Ethyl Alcohol < 10 (Less than 10) mg/dL 08/10/18 08/10/18 08/10/18 Range/Units 20:09 22:08 22:08 WBC (4.3-11.1) K/mcL RBC (3.82-4.97) M/mcL Hgb (11.5-15.4) g/dL Hct (35.3-44.9) % MCV (83.0-100.0) fL MCH (28.0-33.3) pg MCHC (31.6-35.5) g/dL RDW (11.5-14.5) % Plt Count (140-400) K/mcL MPV (9.4-12.4) fL Immature Gran % (0-4) % Seg Neutrophils % % Lymphocytes % % Monocytes % % Eosinophils % % Basophils % % Neutrophils # (1.6-8.9) K/mcL Lymphocytes # (0.6-4.6) K/mcL Monocytes # (0.0-1.3) K/mcL Eosinophils # (0.0-0.6) K/mcL Basophils # (0.0-0.2) K/mcL PT 11.4 (9.4-12.1) Seconds INR 1.0 Sodium (136-145) mEq/L Potassium (3.5-5.1) mEq/L Chloride (98-107) mEq/L Carbon Dioxide (23-29) mEq/L BUN (6-20) mg/dL Creatinine (0.60-1.20) mg/dL Est GFR ( Amer) (> 60) Est GFR (Non-Af Amer) (> 60) BUN/Creatinine Ratio (6-26) Glucose (70-105) mg/dL Calculated Osmolality (280-300) Calcium (8.6-10.3) mg/dL Total Bilirubin (0.3-1.0) mg/dL Direct Bilirubin (0.0-0.2) mg/dL Indirect Bilirubin (0.0-1.2) mg/dL AST (13-39) Units/L ALT (7-52) Units/L Alkaline Phosphatase (34-104) Units/L Troponin I (< 0.04) ng/mL Serum Total Protein (6.4-8.9) g/dL Albumin (3.5-5.7) g/dL Globulin (2.4-3.5) g/dL Albumin/Globulin Ratio (1.1-2.2) TSH (0.340-5.600) mcIU/mL Urine Color Yellow (Yellow) Urine Clarity Clear (Clear) Urine pH 5.5 (5.0-8.0) pH Units Ur Specific [place] 1.017 (1.010-1.025) Urine Protein 30 H (Neg-Trace) mg/dL Urine Glucose (UA) Normal (Normal) mg/dL Urine Ketones Negative (Negative) mg/dL Urine Blood Trace H (Negative) Urine Nitrite Negative (Negative) Urine Bilirubin Negative (Negative) Urine Urobilinogen Normal (Normal) mg/dL Ur Leukocyte Esterase Trace H (Negative) Urine Microscopic RBC 3-5 H (0-3) per hpf Urine Microscopic WBC 3-5 H (0-3) per hpf Ur Squamous Epith Cells Many H (None-Few) per lpf Urine Bacteria Few (None-Few) per hpf Hyaline Casts Moderate H (None-Few) per lpf Urine Test (Negative) Salicylates (15.0-30.0) mg/dL Urine Opiates Screen Positive H (Qsoqno=738) ng/mL Acetaminophen (10-20) mcg/mL Ur Barbiturates Screen Negative (Agudbn=544) ng/mL Ur Phencyclidine Scrn Negative (Cutoff=25) ng/mL Ur Amphetamines Screen Negative (Yyubau=7152) ng/mL U Benzodiazepines Scrn Negative (Gqeund=308) ng/mL Urine Cocaine Screen Negative (Cutoff= 300) ng/mL U Marijuana (THC) Screen Negative (Cutoff = 50) ng/mL Ur Drug Screen Interp See Below Ethyl Alcohol (Less than 10) mg/dL 08/10/18 08/10/18 Range/Units 22:08 22:58 WBC (4.3-11.1) K/mcL RBC (3.82-4.97) M/mcL Hgb (11.5-15.4) g/dL Hct (35.3-44.9) % MCV (83.0-100.0) fL MCH (28.0-33.3) pg MCHC (31.6-35.5) g/dL RDW (11.5-14.5) % Plt Count (140-400) K/mcL MPV (9.4-12.4) fL Immature Gran % (0-4) % Seg Neutrophils % % Lymphocytes % % Monocytes % % Eosinophils % % Basophils % % Neutrophils # (1.6-8.9) K/mcL Lymphocytes # (0.6-4.6) K/mcL Monocytes # (0.0-1.3) K/mcL Eosinophils # (0.0-0.6) K/mcL Basophils # (0.0-0.2) K/mcL PT (9.4-12.1) Seconds INR Sodium (136-145) mEq/L Potassium (3.5-5.1) mEq/L Chloride (98-107) mEq/L Carbon Dioxide (23-29) mEq/L BUN (6-20) mg/dL Creatinine (0.60-1.20) mg/dL Est GFR ( Amer) (> 60) Est GFR (Non-Af Amer) (> 60) BUN/Creatinine Ratio (6-26) Glucose (70-105) mg/dL Calculated Osmolality (280-300) Calcium (8.6-10.3) mg/dL Total Bilirubin (0.3-1.0) mg/dL Direct Bilirubin (0.0-0.2) mg/dL Indirect Bilirubin (0.0-1.2) mg/dL AST (13-39) Units/L ALT (7-52) Units/L Alkaline Phosphatase (34-104) Units/L Troponin I (< 0.04) ng/mL Serum Total Protein (6.4-8.9) g/dL Albumin (3.5-5.7) g/dL Globulin (2.4-3.5) g/dL Albumin/Globulin Ratio (1.1-2.2) TSH (0.340-5.600) mcIU/mL Urine Color (Yellow) Urine Clarity (Clear) Urine pH (5.0-8.0) pH Units Ur Specific [place] (1.010-1.025) Urine Protein (Neg-Trace) mg/dL Urine Glucose (UA) (Normal) mg/dL Urine Ketones (Negative) mg/dL Urine Blood (Negative) Urine Nitrite (Negative) Urine Bilirubin (Negative) Urine Urobilinogen (Normal) mg/dL Ur Leukocyte Esterase (Negative) Urine Microscopic RBC (0-3) per hpf Urine Microscopic WBC (0-3) per hpf Ur Squamous Epith Cells (None-Few) per lpf Urine Bacteria (None-Few) per hpf Hyaline Casts (None-Few) per lpf Urine Test Negative (Negative) Salicylates (15.0-30.0) mg/dL Urine Opiates Screen (Rihlkr=343) ng/mL Acetaminophen 35 H (10-20) mcg/mL Ur Barbiturates Screen (Zytxvu=123) ng/mL Ur Phencyclidine Scrn (Cutoff=25) ng/mL Ur Amphetamines Screen (Ufblin=2153) ng/mL U Benzodiazepines Scrn (Hrkczk=727) ng/mL Urine Cocaine Screen (Cutoff= 300) ng/mL U Marijuana (THC) Screen (Cutoff = 50) ng/mL Ur Drug Screen Interp Ethyl Alcohol (Less than 10) mg/dL - Radiology Data Radiology results reviewed: Yes I reviewed the patient's radiology results. Chest X-Ray 08/10/18 19:56 IMPRESSION: No acute cardiopulmonary disease. D/ / Pj Boateng MD / Pj Boateng MD Interpreting Provider: Pj Boateng MD X-Ray 08/10/18 20:05 IMPRESSION: Nondiagnostic abdominal examination. D/ / Pj Boateng MD / Pj Boateng MD Interpreting Provider: Pj Boateng MD Critical Care Time Critical Care Time: Yes Total Critical Care Time: 45 Attestation: Critical care performed: Time is exclusive of separately billable procedures. Time includes: direct patient care, patient reassessment, coordination of patient care, interpretation of data (laboratory data, radiology data, and respiratory data), review of patient's medical records, medical consultation and documentation of patient care. Procedures included in critical care time: Procedures excluded from critical care time: Attestation Statement - Attestation Attestation: I, Fady Alfaro MD, personally evaluated this patient and discussed their management with the resident physician. I reviewed the resident's note and agree with the documented findings, medical decision making, and plan of care. This patient was signed out at shift change from Dr. Castillo and Dr. Middleton. Christo jain refer to their notes for complete details of the history and physical examination. Patient presented with an intentional multiple drug overdose. Her initial acetaminophen level was 60. At shift change patient is still being observed and awaiting a repeat four-hour postingestion acetaminophen level. She will need admitted by the hospitalist until medically cleared for psychiatric evaluation. Patient very drowsy and sleepy but does respond to physical stimuli. On examination patient is a well-developed well-nourished female. She is very drowsy and sleepy but responds to sternal rub. No cyanosis or diaphoresis. Vital signs are normal. Oxygen saturation 100% on room air. Pulse in the 70s. Blood pressure stable. PERRLA. Breath sounds are equal bilaterally. Heart regular rate and rhythm. Abdomen soft with present bowel sounds. Labs and x-rays reviewed. The hospitalist, come a Dr. Buckley, was consulted and accepted admission of the patient.
--- NOTE | 2018-08-11 01:01 | Internal Med History&Physical ---
<MarcioNitish - Last Filed: 08/11/18 01:41> Date of Encounter: 08/11/18 Internal Medicine - H&P: Meds LORazepam [Ativan] 0.5 mg PO BID PRN 05/06/17 [History] Lisinopril [Zestril] 20 mg PO BID 05/06/17 [History] Metoprolol [Lopressor] 25 mg PO BID 05/06/17 [History] Nicotine Patch [Nicoderm] 14 mg TD DAILY #30 patch.td24 05/06/17 [Rx] Omeprazole [PriLOSEC] 20 mg PO DAILY@0630 #30 capsule. 05/06/17 [Rx] Sucralfate [Carafate] 1 gm PO QIDAC #120 tablet 05/06/17 [Rx] Allergy/AdvReac Type Severity Reaction Status Date / Time hydrochlorothiazide Allergy See Verified 05/05/17 23:00 Comments Penicillins Allergy See Verified 05/05/17 23:00 Comments Sulfa (Sulfonamide Allergy See Verified 05/05/17 23:00 Antibiotics) Comments codeine AdvReac Nausea Verified 05/05/17 23:00 All Systems PM: A 10-system review of systems was performed and is negative for pertinent findings except as documented above in the HPI. - Constitutional Vitals: Temp Pulse Resp BP Pulse Ox 98.0 F 63 20 132/93 100 08/11/18 01:00 08/11/18 01:00 08/11/18 01:00 08/11/18 01:00 08/11/18 01:00 Internal Med - H&P Results - Labs CBC & Chem 7: 08/10/18 20:09 08/10/18 20:09 Labs: Short CBC 08/10/18 Range/Units 20:09 WBC 11.7 H (4.3-11.1) K/mcL Hgb 16.5 H (11.5-15.4) g/dL Hct 47.7 H (35.3-44.9) % Plt Count 253 (140-400) K/mcL Neutrophils # 8.5 (1.6-8.9) K/mcL BMP 08/10/18 20:09 Sodium 140 Potassium 3.5 Chloride 105 Carbon Dioxide 26 BUN 9 Creatinine 0.80 Glucose 107 H Calcium 9.0 Cardiac Enzymes 08/10/18 Range/Units 20:09 Troponin I < 0.03 (< 0.04) ng/mL Liver Function 08/10/18 Range/Units 20:09 Total Bilirubin 0.6 (0.3-1.0) mg/dL Direct Bilirubin 0.1 (0.0-0.2) mg/dL AST 21 (13-39) Units/L ALT 18 (7-52) Units/L Alkaline Phosphatase 95 (34-104) Units/L Albumin 4.2 (3.5-5.7) g/dL Urine 08/10/18 Range/Units 22:08 Urine Color Yellow (Yellow) Urine Clarity Clear (Clear) Urine pH 5.5 (5.0-8.0) pH Units Ur Specific [place] 1.017 (1.010-1.025) Urine Protein 30 H (Neg-Trace) mg/dL Urine Glucose (UA) Normal (Normal) mg/dL - Impressions ITS Impressions Chest X-Ray 08/10/18 19:56 IMPRESSION: No acute cardiopulmonary disease. D/ / Pj Boateng MD / Pj Boateng MD Interpreting Provider: Pj Boateng MD X-Ray 08/10/18 20:05 IMPRESSION: Nondiagnostic abdominal examination. D/ / Pj Boateng MD / Pj Boateng MD Interpreting Provider: Pj Boateng MD - Time Spent With Patient Total time spent is greater than 50% in coordination of care (as documented) at patient's floor/unit and/or counseling patient: - Attending Attestation I performed a history and physical exam of the patient and discussed management with the resident. I reviewed the resident's note and agree with the documented findings and plan of care. Samantha Okeefe is a 48 year old woman with hypertension and psychotic disorder NOS admitted for auditory hallucinations and a suicidal attempt via overdose of multiple medications. Physical exam remarkable for a well-developed white woman sleeping comfortably and only minimally arousable to stimuli. She is protecting her airway. Lungs are clear to auscultation. Abdomen is soft and non-distended. Pulses present and synchronic. Skin warm. Unable to assess psych state at this time of my evaluation. Will admit to ICU for monitoring. Repeat APAP levels and check LFTs. No indication for NAC given the low levels. Monitor for bradycardia and QTc prolongation. Will need psych assessment once medically cleared. GRAYSON BRYANT. <Naomi Oliver - Last Filed: 08/11/18 03:23> Date of Encounter: 08/11/18 Time of Encounter: 00:59 Internal Medicine - H&P: HPI Chief complaint: suicidal ideation, multiple drug overdose Admitted From: Home History of present illness: Ms. Okeefe is a 48 year old female with PMH of hypertension, anxiety, and depression who presented to the emergency department for suicidal ideation and auditory hallucinations. Patient is very solmnolent and difficult to rouse from sleep, therefore she is unable to participate in history or ROS. Information gathered from chart review. According to reports, the patient admitted to suicidal ideation and was having auditory hallucinations. The auditory hallucinations were telling the patient not to hurt herself, but the patient thought the voices were using reverse psychology. Patient ingest multiple medications including Tylenol PM, metoprolol, lisinopril, vicodin, lorazepam, and gabapentin. Initial work up in the emergency department included urine tox screen positive for APAP and opiates. Initial APAP level was 60 and on recheck was 35. CXR was negative for acute cardiopulmonary processes. KUB was unremarkable and nondiagnostic. CBC showed slightly elevated WBC 11.7, Hgb 16.5, Hct 47.7, and platelets 253. Electrolytes were within normal limits. Bilirubin and hepatic enzymes were within normal limits. Troponin was negative. Poison control was contacted by emergency department for their recommendations. Patient was admitted to hospitalist service for evaluation and management prior to evaluation by psychiatry. Past Med Surg Social Fam HX - Past Medical History Medical history: hypertension Psychiatric history: anxiety, depression - Past Surgical History Surgical History: , cholecystectomy Additional surgical history: TONSIL AND ADNOIDECTOMY, LEFT HAND SURGERY. - Social History Smoking Status: Current every day smoker Smokeless Tobacco Status: No Alcohol use: none Drug use: none - Family History Mother Hx Family Cardiac Disorders: Yes (HYPERTENSION.) ROS unobtainable: due to mental status All Systems PM: A 10-system review of systems was performed and is negative for pertinent findings except as documented above in the HPI. - Constitutional Vitals: Temp Pulse Resp BP Pulse Ox 97.8 F 63 13 133/94 100 08/11/18 00:45 08/11/18 00:45 08/11/18 00:45 08/11/18 00:45 08/11/18 00:45 Exam: General: very somnolent, difficult to rouse and falls asleep quickly HEENT: facial swelling right > left, normocephalic/atraumatic, PERRL, sclera anicteric, moist mucus membranes Neck: Supple, Cardio: RRR, no murmurs, +S1 and S2 Pulm: Normal respiratory effort, sonorous breath sounds but no appreciable wheezes/rhonchi/rales Abdomen: soft, nontender, active bowel sounds; no rebound, rigidity, guarding, distention Extremities: No LE edema; no cyanosis or clubbing Back: normal appearance on inspection Neuro: somnolent, unable to assess mental status, moves all extremities spon taneously, Strength 5/5 BUE and BLE, follows commands MSK: no visible deformities, no swollen or erythematous joints Skin: clean, dry, intact, no visible rashes or abrasions Internal Med - H&P Results - Labs CBC & Chem 7: 08/10/18 20:09 08/10/18 20:09 Labs: Short CBC 08/10/18 Range/Units 20:09 WBC 11.7 H (4.3-11.1) K/mcL Hgb 16.5 H (11.5-15.4) g/dL Hct 47.7 H (35.3-44.9) % Plt Count 253 (140-400) K/mcL Neutrophils # 8.5 (1.6-8.9) K/mcL BMP 08/10/18 20:09 Sodium 140 Potassium 3.5 Chloride 105 Carbon Dioxide 26 BUN 9 Creatinine 0.80 Glucose 107 H Calcium 9.0 Cardiac Enzymes 08/10/18 Range/Units 20:09 Troponin I < 0.03 (< 0.04) ng/mL Liver Function 08/10/18 Range/Units 20:09 Total Bilirubin 0.6 (0.3-1.0) mg/dL Direct Bilirubin 0.1 (0.0-0.2) mg/dL AST 21 (13-39) Units/L ALT 18 (7-52) Units/L Alkaline Phosphatase 95 (34-104) Units/L Albumin 4.2 (3.5-5.7) g/dL Urine 08/10/18 Range/Units 22:08 Urine Color Yellow (Yellow) Urine Clarity Clear (Clear) Urine pH 5.5 (5.0-8.0) pH Units Ur Specific [place] 1.017 (1.010-1.025) Urine Protein 30 H (Neg-Trace) mg/dL Urine Glucose (UA) Normal (Normal) mg/dL - Impressions ITS Impressions Chest X-Ray 08/10/18 19:56 IMPRESSION: No acute cardiopulmonary disease. D/ / Pj Boateng MD / Pj Boateng MD Interpreting Provider: Pj Boateng MD X-Ray 08/10/18 20:05 IMPRESSION: Nondiagnostic abdominal examination. D/ / Pj Boateng MD / Pj Boateng MD Interpreting Provider: Pj Boateng MD - Assessment and plan (1) Suicide attempt by multiple drug overdose Current Visit: Yes Status: Acute Assessment and plan: Known h/o anxiety and depression Attempted overdose with Tylenol PM, metoprolol, lisinopril, lorazepam, Vicodin, and gabapentin Urine tox positive for APAP and opioids ED contacted poison control center--recommended IVF and continued monitoring Initial APAP level 60, repeat level 35--NAC not necessary at these levels Electrolytes within normal limits Liver enzymes within normal limits EKG showed normal sinus rhythm and rate, appropriate QTc, no evidence of ST elevation or depression Normal sinus rhythm and regular rate on cardiac nurse specialist Patient currently protecting her airway Repeat APAP level Repeat CMP IVF hydration with LR @ 125 mL/hr Will require intubation if patient becomes unable to maintain airway Continue cardiac monitoring Consult to psychiatry for evaluation Qualifiers: Encounter type: initial encounter Qualified Code(s): T50.902A - Poisoning by unspecified drugs, medicaments and biological substances, intentional self- harm, initial encounter (2) Suicide attempt by beta walker overdose Current Visit: Yes Status: Acute Assessment and plan: As above Hemodynamically stable since presentation HR low 60s-70 EKG showed normal sinus rhythm and rate, appropriate QTc, no evidence of ST elevation or depression Normal sinus rhythm and regular rate on cardiac nurse specialist IVF as above Continue cardiac monitoring Consider IV atropine for bradycardia and hypotension (if ineffective, consider IV glucagon) Qualifiers: Encounter type: initial encounter Qualified Code(s): T44.7X2A - Poisoning by beta-adrenoreceptor antagonists, intentional self-harm, initial encounter (3) Acetaminophen overdose Current Visit: Yes Status: Acute Assessment and plan: As above Intentional overdose in setting of attempted suicide Initial APAP level 60, repeat level 35 Liver enzymes within normal limits Plan: as above Qualifiers: Encounter type: initial encounter Injury intent: intentional self-harm Qualified Code(s): T39.1X2A - Poisoning by 4-Aminophenol derivatives, intentional self-harm, initial encounter (4) Leukocytosis Current Visit: Yes Status: Acute Assessment and plan: WBC 11.7 Most likely effect of hemoconcentration d/t dehydration, elevation from inflammatory response d/t medication overdose No infectious source identified, patient afebrile since presentation CXR negative for acute cardiopulmonary processes; KUB nondiagnostic (RUQ surgical clips noted) Recheck CBC Qualifiers: Leukocytosis type: unspecified Qualified Code(s): D72.829 - Elevated white blood cell count, unspecified (5) Depression Current Visit: Yes Status: Acute Assessment and plan: Known h/o depression No anti-depressant meds seen on home med list Verify home meds Psychiatry consult as above Qualifiers: Depression Type: unspecified Qualified Code(s): F32.9 - Major depressive disorder, single episode, unspecified (6) Auditory hallucination Current Visit: Yes Status: Acute Assessment and plan: No previous history of hallucinations or psychiatric hospitalizations (7) HTN (hypertension), benign Current Visit: No Status: Chronic Assessment and plan: Hemodynamically stable Home meds metoprolol and lisinopril Hold home meds for now Continue cardiac monitoring (8) DVT prophylaxis Current Visit: Yes Status: Acute Assessment and plan: SubQ heparin - Time Spent With Patient Total time spent is greater than 50% in coordination of care (as documented) at patient's floor/unit and/or counseling patient:
[2018-08-11] MEDS ORDERED: Ringers Solution, Lactated 1,000 ML IVC SCH (01:45)
[2018-08-11] MEDS ORDERED: D5% in Lactated Ringers 1,000 ML IVC SCH (02:00)
[2018-08-11] MEDS: Ringers Solution, Lactated 1,000 ML IVC SCH ×2 (02:43→09:44)
[2018-08-11 04:41] LABS: Basophils % 0.3 %; Eosinophils # 0.1 K/mcL (0.0-0.6); Eosinophils % 0.5 %; Hematocrit 44.3 % (35.3-44.9); Immature Granulocytes % 0.4 % (0-4); Lymphocytes # 2.6 K/mcL (0.6-4.6); Lymphocytes % 24.7 %; Mean Corpuscular HGB Conc 33.4 g/dL (31.6-35.5); Mean Corpuscular Volume 95.9 fL (83.0-100.0); Mean Platelet Volume 9.4 fL (9.4-12.4); Monocytes # 0.7 K/mcL (0.0-1.3); Monocytes % 7.2 %; Neutrophils # 6.9 K/mcL (1.6-8.9); Platelet Count 217 K/mcL (140-400); Red Blood Count 4.62 M/mcL (3.82-4.97); Red Cell Distribution Width 13.6 % (11.5-14.5); Segmented Neutrophils % 66.9 %
[2018-08-11 04:43] LABS: Hemoglobin 14.8 g/dL (11.5-15.4)
[2018-08-11 05:03] LABS: Acetaminophen 12 mcg/mL (10-20); Alanine Aminotransferase 227 Units/L (7-52); Albumin 3.3 g/dL (3.5-5.7); Albumin/Globulin Ratio 2.1 (1.1-2.2); Alkaline Phosphatase 94 Units/L (34-104); Aspartate Amino Transferase 353 Units/L (13-39); BUN/Creatinine Ratio 17 (6-26); Bilirubin,Total 0.6 mg/dL (0.3-1.0); Blood Urea Nitrogen 9 mg/dL (6-20); Calcium 7.8 mg/dL (8.6-10.3); Carbon Dioxide 22 mEq/L (23-29); Chloride 113 mEq/L (98-107); Globulin 1.6 g/dL (2.4-3.5); Glucose 89 mg/dL (70-105); Osmolality,Calculated 288 (280-300); Potassium 3.6 mEq/L (3.5-5.1); Sodium 140 mEq/L (136-145); Total Protein 4.9 g/dL (6.4-8.9); eGFR For Non-African Americans > 60 (> 60)
[2018-08-11] MEDS: *HR* Heparin 5,000 UNIT/ML VIAL SQ SCH ×2 (05:21→18:30)
--- NOTE | 2018-08-11 12:13 | Consult Note ---
Date of Encounter: 08/11/18 Time of Encounter: 11:45 Assessment & Recommendation (1) Major depressive disorder, severe Current visit: Yes Status: Acute (2) Suicide attempt by multiple drug overdose Current visit: Yes Status: Acute Qualifiers: Encounter type: initial encounter Qualified Code(s): T50.902A - Poisoning by unspecified drugs, medicaments and biological substances, intentional self- harm, initial encounter History of Present Illness Patient: new to practice Requesting Physician: Nitish Buckley MD Reason for consult: overdose History of present illness: PEr ER: Patient is a 48-year-old female that presents emergency department for possible overdose and suicidal ideation. Patient states that she is been feeling depressed and was hearing voices been telling her not to take the pills however she felt like they are using reverse psychology so she took multiple lorazepam, Vicodin, gabapentin, Tylenol PM and lisinopril as well as metoprolol. Patient states that she is unsure exactly how much she took of each but estimates that she took 10-12 gabapentin, 4 Vicodin, 4Tylenol, and l 20 lisinopril and 20 metoprolol. Patient states that she is not having any homicidal ideations. Patient denies any visual hallucinations. Patient did report that she was having auditory hallucinations. Patient has ever having to have previous admission to the hospital for psychiatric reasons. Pt is a 48 yo, , female, who presents for mood and depression with overdose. Pt noted that she feels she is still very depressed. Pt noted she is I need help. Pt noted she currently felt safe and comfortable on the unit. Pt was in agreement with treatment plan. Pt noted that she is doing pretty good today. Pt noted she slept A lot last night. Pt noted her appetite is poor. Pt rated her depression a 10, on a scale of zero to ten with ten being the worst and zero being none. Pt rate her anxiety a 10, on the same scale. Pt denied any auditory or visual hallucinations. Pt denied any thoughts to harm herself or anyone else. 1.Interval hx 2.Continue current medications 3.Review current labs 4.Pt had an opportunity to ask questions and discuss current treatment plan. 5.Supportive therapy was provided 6.Pt encouraged to consider group or individual therapy 7.Pt was in agreement with treatment plan. 8.Pt was educated on the risks benefits and side effects of current medications. 9. Once pt is medically stabilized and stepped down pt to be admitted to for inpt psych stabilization. CC: Nitish Buckley MD Past Med Surg Social Fam HX - Past Medical History Medical history: hypertension - Past Psychiatric History Psychiatric history: Reports: depression Family psychiatric history: Unknown Family History of Suicide: Unknown - Past Surgical History Surgical History: , cholecystectomy - Social History Smoking Status: Current every day smoker Smokeless Tobacco Status: No Alcohol use: none Drug use: none - Family History Mother History Unknown: Yes Hx Family Cardiac Disorders: Yes (HYPERTENSION.) Medications & Allergies LORazepam [Ativan] 0.5 mg PO BID PRN 05/06/17 [History] Lisinopril [Zestril] 20 mg PO BID 05/06/17 [History] Metoprolol [Lopressor] 25 mg PO BID 05/06/17 [History] Escitalopram [Lexapro] 10 mg PO DAILY 08/11/18 [History] Gabapentin [Neurontin] 100 mg PO DAILY 08/11/18 [History] Allergy/AdvReac Type Severity Reaction Status Date / Time hydrochlorothiazide Allergy See Verified 08/11/18 08:46 Comments Penicillins Allergy See Verified 08/11/18 08:46 Comments Sulfa (Sulfonamide Allergy See Verified 08/11/18 08:46 Antibiotics) Comments codeine AdvReac Nausea Verified 08/11/18 08:46 Review of Systems Constitutional: Denies: fever, chills, weakness, weight change Eyes: Denies: eye pain, vision change Ears, Nose, Throat: Denies: ear pain, throat pain, dental pain, hearing loss, congestion Cardiovascular: Denies: chest pain, palpitations, dyspnea on exertion Respiratory: Denies: cough, dyspnea, wheezes Gastrointestinal: Denies: abdominal pain, nausea, vomiting, diarrhea, constipation Genitourinary female: Denies: urgency, dysuria, frequency, abnormal menses, dyspareunia Musculoskeletal: Denies: joint swelling, joint pain Integumentary: Denies: rash, lesions, pruritus Neurological: Denies: headache, weakness, numbness, memory loss Psychiatric: Reports: depression, suicidal ideation Endocrine: Denies: fatigue, heat or cold intolerance Hematologic/Lymphatic: Denies: easy bruising, lymphadenopathy Allergic/Immunologic: Denies: urticaria, itchy eyes Psychiatry Exam - Constitutional Vitals: Temp Pulse Resp BP Pulse Ox 98.7 F 76 16 179/123 96 08/11/18 12:00 08/11/18 12:00 08/11/18 12:00 08/11/18 12:00 08/11/18 12:00 General appearance: age & developmentally appropriate, well-groomed, well- nourished - Musculoskeletal Gait: normal Station: relaxed Strength & Tone: normal for patient - Psychiatric Patient Orientation: Yes Person, Yes Time, Yes Place Level of alertness: Alert Behavior: cooperative, tearful Psychomotor activity: Slowed Eye Contact: Minimal Contact Mood Description: Depressed Affect description: congruent with mood, blunted, flat Speech Volume: Normal Speech pattern: normal rate, normal rhythm, normal tone, fluent, spontaneous Language & Vocabulary: consistent with education Thought Process: Linear, Goal Oriented Thought Content: No Suicidal ideation, No Homicidal ideation, No Overt delusions Perceptual Disturbances: No Auditory hallucinations, No Visual hallucinations Attention Span Ability: Capable of Focused Attention Memory Description: Grossly Intact Patient Reliability: Reliable Historian Fund of knowledge: Yes abstraction ability, Yes aware of current events Intelligence Estimate: Average Judgment: Poor Insight: Minimal Results - Drug Levels and Toxicology Drug Levels and Toxicology: Drug Levels and Toxicity 08/10/18 08/10/18 08/10/18 20:09 22:08 22:58 Urine Opiates Screen Positive H Acetaminophen 60 H 35 H Ur Barbiturates Screen Negative Ur Phencyclidine Scrn Negative Ur Amphetamines Screen Negative U Benzodiazepines Scrn Negative Urine Cocaine Screen Negative U Marijuana (THC) Screen Negative Ethyl Alcohol < 10 08/11/18 04:10 Urine Opiates Screen Acetaminophen 12 Ur Barbiturates Screen Ur Phencyclidine Scrn Ur Amphetamines Screen U Benzodiazepines Scrn Urine Cocaine Screen U Marijuana (THC) Screen Ethyl Alcohol - Labs Labs: Laboratory Last Values WBC 10.3 K/mcL (4.3-11.1) 08/11/18 04:10 RBC 4.62 M/mcL (3.82-4.97) 08/11/18 04:10 Hgb 14.8 g/dL (11.5-15.4) D 08/11/18 04:10 Hct 44.3 % (35.3-44.9) 08/11/18 04:10 MCV 95.9 fL (83.0-100.0) 08/11/18 04:10 MCH 32.0 pg (28.0-33.3) 08/11/18 04:10 MCHC 33.4 g/dL (31.6-35.5) 08/11/18 04:10 RDW 13.6 % (11.5-14.5) 08/11/18 04:10 Plt Count 217 K/mcL (140-400) 08/11/18 04:10 MPV 9.4 fL (9.4-12.4) 08/11/18 04:10 Immature Gran % 0.4 % (0-4) 08/11/18 04:10 Seg Neutrophils % 66.9 % 08/11/18 04:10 Lymphocytes % 24.7 % 08/11/18 04:10 Monocytes % 7.2 % 08/11/18 04:10 Eosinophils % 0.5 % 08/11/18 04:10 Basophils % 0.3 % 08/11/18 04:10 Neutrophils # 6.9 K/mcL (1.6-8.9) 08/11/18 04:10 Lymphocytes # 2.6 K/mcL (0.6-4.6) 08/11/18 04:10 Monocytes # 0.7 K/mcL (0.0-1.3) 08/11/18 04:10 Eosinophils # 0.1 K/mcL (0.0-0.6) 08/11/18 04:10 Basophils # 0.0 K/mcL (0.0-0.2) 08/11/18 04:10 PT 11.4 Seconds (9.4-12.1) 08/10/18 20:09 INR 1.0 08/10/18 20:09 Sodium 140 mEq/L (136-145) 08/11/18 04:10 Potassium 3.6 mEq/L (3.5-5.1) 08/11/18 04:10 Chloride 113 mEq/L (98-107) H 08/11/18 04:10 Carbon Dioxide 22 mEq/L (23-29) L 08/11/18 04:10 BUN 9 mg/dL (6-20) 08/11/18 04:10 Creatinine 0.54 mg/dL (0.60-1.20) L 08/11/18 04:10 Est GFR ( Amer) > 60 (> 60) 08/11/18 04:10 Est GFR (Non-Af Amer) > 60 (> 60) 08/11/18 04:10 BUN/Creatinine Ratio 17 (6-26) 08/11/18 04:10 Glucose 89 mg/dL (70-105) 08/11/18 04:10 Calculated Osmolality 288 (280-300) 08/11/18 04:10 Calcium 7.8 mg/dL (8.6-10.3) L 08/11/18 04:10 Total Bilirubin 0.6 mg/dL (0.3-1.0) 08/11/18 04:10 Direct Bilirubin 0.1 mg/dL (0.0-0.2) 08/10/18 20:09 Indirect Bilirubin 0.5 mg/dL (0.0-1.2) 08/10/18 20:09 AST 353 Units/L (13-39) H 08/11/18 04:10 ALT 227 Units/L (7-52) H 08/11/18 04:10 Alkaline Phosphatase 94 Units/L (34-104) 08/11/18 04:10 Troponin I < 0.03 ng/mL (< 0.04) 08/10/18 20:09 Serum Total Protein 4.9 g/dL (6.4-8.9) L 08/11/18 04:10 Albumin 3.3 g/dL (3.5-5.7) L 08/11/18 04:10 Globulin 1.6 g/dL (2.4-3.5) L 08/11/18 04:10 Albumin/Globulin Ratio 2.1 (1.1-2.2) 08/11/18 04:10 TSH 2.096 mcIU/mL (0.340-5.600) 08/10/18 20:09 Urine Color Yellow (Yellow) 08/10/18 22:08 Urine Clarity Clear (Clear) 08/10/18 22:08 Urine pH 5.5 pH Units (5.0-8.0) 08/10/18 22:08 Ur Specific [place] 1.017 (1.010-1.025) 08/10/18 22:08 Urine Protein 30 mg/dL (Neg-Trace) H 08/10/18 22:08 Urine Glucose (UA) Normal mg/dL (Normal) 08/10/18 22:08 Urine Ketones Negative mg/dL (Negative) 08/10/18 22:08 Urine Blood Trace (Negative) H 08/10/18 22:08 Urine Nitrite Negative (Negative) 08/10/18 22:08 Urine Bilirubin Negative (Negative) 08/10/18 22:08 Urine Urobilinogen Normal mg/dL (Normal) 08/10/18 22:08 Ur Leukocyte Esterase Trace (Negative) H 08/10/18 22:08 Urine Microscopic RBC 3-5 per hpf (0-3) H 08/10/18 22:08 Urine Microscopic WBC 3-5 per hpf (0-3) H 08/10/18 22:08 Ur Squamous Epith Cells Many per lpf (None-Few) H 08/10/18 22:08 Urine Bacteria Few per hpf (None-Few) 08/10/18 22:08 Hyaline Casts Moderate per lpf (None-Few) H 08/10/18 22:08 Urine Test Negative (Negative) 08/10/18 22:08 Salicylates < 2.5 mg/dL (15.0-30.0) L 08/10/18 20:09 Urine Opiates Screen Positive ng/mL (Lxiqjd=813) H 08/10/18 22:08 Acetaminophen 12 mcg/mL (10-20) 08/11/18 04:10 Ur Barbiturates Screen Negative ng/mL (Qffnwj=959) 08/10/18 22:08 Ur Phencyclidine Scrn Negative ng/mL (Cutoff=25) 08/10/18 22:08 Ur Amphetamines Screen Negative ng/mL (Plppno=7717) 08/10/18 22:08 U Benzodiazepines Scrn Negative ng/mL (Nugips=760) 08/10/18 22:08 Urine Cocaine Screen Negative ng/mL (Cutoff= 300) 08/10/18 22:08 U Marijuana (THC) Screen Negative ng/mL (Cutoff = 50) 08/10/18 22:08 Ur Drug Screen Interp See Below 08/10/18 22:08 Ethyl Alcohol < 10 mg/dL (Less than 10) 08/10/18 20:09 - Impressions Impressions Chest X-Ray 08/10/18 19:56 IMPRESSION: No acute cardiopulmonary disease. D/ / Pj Boateng MD / Pj Boateng MD Interpreting Provider: Pj Boateng MD X-Ray 08/10/18 20:05 IMPRESSION: Nondiagnostic abdominal examination. D/ / Pj Boateng MD / Pj Boateng MD Interpreting Provider: Pj Boateng MD Consult Discharge Plan - Plan
[2018-08-11] MEDS ORDERED: ACETYLCYSTEINE IVC ONE (12:37)
[2018-08-11] MEDS ORDERED: D5 IVC ONE (12:37)
[2018-08-11] MEDS ORDERED: WATER IVC ONE (12:37)
[2018-08-11] MEDS: amLODIPine 5 MG TABLET PO SCH (13:22)
[2018-08-11] MEDS ORDERED: Acetylcysteine 3,200 MG in D5% in Water 500 ML IVC ONE (14:00)
--- NOTE | 2018-08-11 14:30 | Internal Med Progress Note ---
Hospitalist Progress Note - Encounter Date of Encounter: 08/11/18 Time of Encounter: 09:00 - Subjective Interval History: Patient is more awake alert. Denies abdominal pain, nausea, or vomiting. BP is high, otherwise vitals are stable. - Exam Vitals: Temp Pulse Resp BP Pulse Ox 98.7 F 73 18 190/111 95 08/11/18 12:00 08/11/18 13:00 08/11/18 13:00 08/11/18 13:00 08/11/18 13:00 Exam: General: AAO x3, HEENT: facial swelling right > left, normocephalic/atraumatic, PERRL, sclera anicteric, moist mucus membranes Neck: Supple, Cardio: RRR, no murmurs, +S1 and S2 Pulm: Normal respiratory effort, sonorous breath sounds but no appreciable wheezes/rhonchi/rales Abdomen: soft, nontender, active bowel sounds; no rebound, rigidity, guarding, distention Extremities: No LE edema; no cyanosis or clubbing Back: normal appearance on inspection Neuro: sAAO x 3, Strength 5/5 BUE and BLE, follows commands MSK: no visible deformities, no swollen or erythematous joints Skin: clean, dry, intact, no visible rashes or abrasions - Assessment and Plan (1) Acetaminophen overdose Current Visit: Yes Status: Acute Assessment and Plan: Patient has elevated AST and ALT. Poison control recommend started NAC protocol. NAC protocol started. - Closely monitor liver function, PT/INR, and acetaminophen level. (2) Depression Current Visit: Yes Status: Acute Assessment and Plan: Psychiatry consult appreciated. Recommendation will be followed. (3) Suicide attempt by multiple drug overdose Current Visit: Yes Status: Acute Assessment and Plan: Keep patient on one-to-one sitter. Psychiatry consult appreciated. Will transfer to psych unit when patient is stabilized (4) DVT prophylaxis Current Visit: No Status: Acute Assessment and Plan: Heparin subcutaneously (5) HTN (hypertension), benign Current Visit: No Status: Chronic Assessment and Plan: Resumed patient by mouth medication as patient is awake alert now and diet is restarted DVT Prophylaxis: Heparin subcutaneously - Time Spent with Patient Total time spent is greater than 50% in coordination of care (as documented) at patient's floor/unit and/or counseling patient: 30 minutes 25 - 35 minutes Internal Medicine: Result - Labs CBC & Chem 7: 08/11/18 04:10 08/11/18 04:10 Labs: Short CBC 08/10/18 08/11/18 Range/Units 20:09 04:10 WBC 11.7 H 10.3 (4.3-11.1) K/mcL Hgb 16.5 H 14.8 D (11.5-15.4) g/dL Hct 47.7 H 44.3 (35.3-44.9) % Plt Count 253 217 (140-400) K/mcL Neutrophils # 8.5 6.9 (1.6-8.9) K/mcL BMP 08/10/18 08/11/18 20:09 04:10 Sodium 140 140 Potassium 3.5 3.6 Chloride 105 113 H Carbon Dioxide 26 22 L BUN 9 9 Creatinine 0.80 0.54 L Glucose 107 H 89 Calcium 9.0 7.8 L Cardiac Enzymes 08/10/18 Range/Units 20:09 Troponin I < 0.03 (< 0.04) ng/mL Liver Function 08/10/18 08/11/18 Range/Units 20:09 04:10 Total Bilirubin 0.6 0.6 (0.3-1.0) mg/dL Direct Bilirubin 0.1 (0.0-0.2) mg/dL AST 21 353 H (13-39) Units/L ALT 18 227 H (7-52) Units/L Alkaline Phosphatase 95 94 (34-104) Units/L Albumin 4.2 3.3 L (3.5-5.7) g/dL Urine 08/10/18 Range/Units 22:08 Urine Color Yellow (Yellow) Urine Clarity Clear (Clear) Urine pH 5.5 (5.0-8.0) pH Units Ur Specific [place] 1.017 (1.010-1.025) Urine Protein 30 H (Neg-Trace) mg/dL Urine Glucose (UA) Normal (Normal) mg/dL - ABG Interpretation ABG results: PT/INR, D-dimer PT 11.4 Seconds (9.4-12.1) 08/10/18 20:09 - Impressions Impressions Chest X-Ray 08/10/18 19:56 IMPRESSION: No acute cardiopulmonary disease. D/ / Pj Boateng MD / Pj Boateng MD Interpreting Provider: Pj Boateng MD X-Ray 08/10/18 20:05 IMPRESSION: Nondiagnostic abdominal examination. D/ / Pj Boateng MD / Pj Boateng MD Interpreting Provider: Pj Boateng MD Consult Discharge Plan - Plan Referrals: Chelsea Kraus, FELT PULLER [Primary Care Provider] - (1) Acetaminophen overdose Qualifiers: Encounter type: initial encounter Injury intent: intentional self-harm Qualified Code(s): T39.1X2A - Poisoning by 4-Aminophenol derivatives, intentional self-harm, initial encounter (2) Depression Qualifiers: Depression Type: major depressive disorder Major depression recurrence: recurrent Active/Remission status: remission status unspecified Qualified Code(s): F33.9 - Major depressive disorder, recurrent, unspecified (3) Suicide attempt by multiple drug overdose Qualifiers: Encounter type: initial encounter Qualified Code(s): T50.902A - Poisoning by unspecified drugs, medicaments and biological substances, intentional self-harm, initial encounter
[2018-08-11] MEDS ORDERED: *HR* LORazepam 0.5 MG TABLET PO PRN (14:32)
[2018-08-11] MEDS ORDERED: *HR* Labetalol 20 MG/4 ML SYRINGE IVP PRN (15:04)
[2018-08-11] MEDS ORDERED: Ondansetron 4 MG/2 ML VIAL ONE (15:09)
[2018-08-11] MEDS: Ondansetron 4 MG/2 ML VIAL IVP PRN (15:14)
[2018-08-11] MEDS ORDERED: Nicotine 21 MG PATCH.TD24 TD SCH (15:15)
--- NOTE | 2018-08-11 15:37 | Electrocardiograph Report ---
[address] [place] [address] Test Date: 2018-08-10 Pat Name: Samantha Okeefe Department: EXAM6 Room: [facility] Gender: F Data Processing Equipment Repairer: : [id number] Requested By: Zachariah Middleton Order Number: [id number] Reading MD: Yvon Saunders Measurements Intervals [place] Rate: 81 P: 20 DE: 154 QRS: 25 QRSD: 83 T: 72 QT: 386 QTc: 448 Interpretive Statements Sinus rhythm Electronically Signed On 08-11-2018 15:35:40 EST by Yvon Saunders
[2018-08-11 16:45] LABS: INR 1.1; Prothrombin Time 12.4 Seconds (9.4-12.1)
[2018-08-11 16:52] LABS: Acetaminophen < 10 mcg/mL (10-20); Alanine Aminotransferase 193 Units/L (7-52); Albumin 3.9 g/dL (3.5-5.7); Albumin/Globulin Ratio 2.3 (1.1-2.2); Alkaline Phosphatase 98 Units/L (34-104); Aspartate Amino Transferase 141 Units/L (13-39); Bilirubin,Direct 0.1 mg/dL (0.0-0.2); Bilirubin,Indirect 0.4 mg/dL (0.0-1.2); Bilirubin,Total 0.5 mg/dL (0.3-1.0); Globulin 1.7 g/dL (2.4-3.5); Total Protein 5.6 g/dL (6.4-8.9)
[2018-08-11] MEDS ORDERED: Acetylcysteine 6,500 MG in D5% in Water 1,000 ML IVC ONE (18:00)
[2018-08-11] MEDS: Ibuprofen 400 MG TABLET PO PRN (18:34)
[2018-08-12 04:49] LABS: Basophils % 0.2 %; Eosinophils % 0.2 %; Hematocrit 43.7 % (35.3-44.9); Hemoglobin 15.2 g/dL (11.5-15.4); Immature Granulocytes % 0.3 % (0-4); Lymphocytes # 2.4 K/mcL (0.6-4.6); Lymphocytes % 25.1 %; Mean Corpuscular HGB Conc 34.8 g/dL (31.6-35.5); Mean Platelet Volume 9.8 fL (9.4-12.4); Monocytes # 0.8 K/mcL (0.0-1.3); Monocytes % 7.7 %; Neutrophils # 6.5 K/mcL (1.6-8.9); Platelet Count 235 K/mcL (140-400); Red Blood Count 4.75 M/mcL (3.82-4.97); Red Cell Distribution Width 13.4 % (11.5-14.5); Segmented Neutrophils % 66.5 %
[2018-08-12 04:58] LABS: INR 1.1; Prothrombin Time 12.9 Seconds (9.4-12.1)
[2018-08-12 05:12] LABS: Acetaminophen < 10 mcg/mL (10-20); Alanine Aminotransferase 139 Units/L (7-52); Albumin 3.7 g/dL (3.5-5.7); Albumin/Globulin Ratio 2.2 (1.1-2.2); Alkaline Phosphatase 89 Units/L (34-104); Aspartate Amino Transferase 68 Units/L (13-39); BUN/Creatinine Ratio 10 (6-26); Bilirubin,Direct 0.1 mg/dL (0.0-0.2); Bilirubin,Indirect 0.3 mg/dL (0.0-1.2); Bilirubin,Total 0.4 mg/dL (0.3-1.0); Blood Urea Nitrogen 5 mg/dL (6-20); Calcium 8.5 mg/dL (8.6-10.3); Carbon Dioxide 27 mEq/L (23-29); Chloride 107 mEq/L (98-107); Globulin 1.7 g/dL (2.4-3.5); Glucose 161 mg/dL (70-105); Osmolality,Calculated 297 (280-300); Potassium 2.8 mEq/L (3.5-5.1); Sodium 143 mEq/L (136-145); Total Protein 5.4 g/dL (6.4-8.9); eGFR For Non-African Americans > 60 (> 60)
[2018-08-12] MEDS: Ibuprofen 400 MG TABLET PO PRN (05:33)
[2018-08-12] MEDS: *HR* Heparin 5,000 UNIT/ML VIAL SQ SCH ×2 (05:34→18:10)
[2018-08-12] MEDS: Ondansetron 4 MG/2 ML VIAL IVP PRN ×2 (06:41→19:02)
[2018-08-12] MEDS ORDERED: Potassium Chloride 40 MEQ, Lidocaine 1% 2 ML in D5% in Water 500 ML IVPB ONE (07:24)
[2018-08-12 08:22] LABS: VBG Ionized Calcium 1.11 mmol/L (1.15-1.35)
[2018-08-12] MEDS: amLODIPine 5 MG TABLET PO SCH (08:33)
[2018-08-12] MEDS ORDERED: Ibuprofen 400 MG TABLET PO PRN (08:51)
[2018-08-12] MEDS ORDERED: *HR* Labetalol 20 MG/4 ML SYRINGE IVP PRN (08:51)
[2018-08-12] MEDS ORDERED: *HR* LORazepam 0.5 MG TABLET PO PRN (08:51)
--- NOTE | 2018-08-12 08:53 | Internal Med Progress Note ---
<RadharigokatelynAline chiu - Last Filed: 08/12/18 08:51> Hospitalist Progress Note - Encounter Date of Encounter: 08/12/18 Time of Encounter: 08:51 - Subjective Interval History: Patient is alert. Headache and nausea. States diet pepsi will fix her headache. She has not had a bowel movement in several days, no chronic constipation. - Exam Vitals: Temp Pulse Resp BP Pulse Ox 98.4 F 81 16 133/79 93 08/12/18 03:00 08/12/18 06:00 08/12/18 06:00 08/12/18 06:00 08/12/18 03:00 Exam: General: alert, NAD HEENT: normocephalic, atraumatic, PEERLA EOMI, neck supple, trachea midline, external ears normal, MMM Cardiac: RRR, 4/6 systolic murmur Respiratory: CTAB Abdomen: soft, nontender, BS present Extremities: posterior tibial pulses 2/4 equal, no edema Neuro: A&Ox3 Psych: flat affect - Assessment and Plan (1) Suicide attempt by multiple drug overdose Current Visit: Yes Status: Acute Assessment and Plan: awake and alert asking for "food" rather than clear liquid diet plan to transfer to 1A after 24 hrs on step down unit (2) Hypokalemia Current Visit: Yes Status: Acute Assessment and Plan: K 2.8 this AM replete with 40 meq po and 40 meq IV recheck level at 1pm - plan pending lab result (3) Major depressive disorder, severe Current Visit: Yes Status: Acute Assessment and Plan: plan to transfer to 1A after 24 hrs on step down unit (4) HTN (hypertension), benign Current Visit: No Status: Chronic Assessment and Plan: hypertensive yesterday - treated with scheduled and prn labetalol and prn hydralazine, home metoprolol was continued but home lisinopril was not BP WNL this AM stop labetolol and hydralazine continue home metoprolol start home lisinopril continue to monitor (5) Heart murmur on physical examination Current Visit: Yes Status: Acute Assessment and Plan: patient reports she has never been told she has a heart murmur previously echocardiogram ordered DVT Prophylaxis: Heparin SQ - Time Spent with Patient Total time spent is greater than 50% in coordination of care (as documented) at patient's floor/unit and/or counseling patient: Internal Medicine: Result - Labs CBC & Chem 7: 08/12/18 03:54 08/12/18 03:54 Labs: Short CBC 08/12/18 Range/Units 03:54 WBC 9.7 (4.3-11.1) K/mcL Hgb 15.2 (11.5-15.4) g/dL Hct 43.7 (35.3-44.9) % Plt Count 235 (140-400) K/mcL Neutrophils # 6.5 (1.6-8.9) K/mcL BMP 08/12/18 03:54 Sodium 143 Potassium 2.8 L Chloride 107 Carbon Dioxide 27 BUN 5 L Creatinine 0.51 L Glucose 161 H Calcium 8.5 L Liver Function 08/11/18 08/12/18 Range/Units 16:11 03:54 Total Bilirubin 0.5 0.4 (0.3-1.0) mg/dL Direct Bilirubin 0.1 0.1 (0.0-0.2) mg/dL AST 141 H 68 H (13-39) Units/L ALT 193 H 139 H (7-52) Units/L Alkaline Phosphatase 98 89 (34-104) Units/L Albumin 3.9 3.7 (3.5-5.7) g/dL - ABG Interpretation ABG results: PT/INR, D-dimer PT 12.9 Seconds (9.4-12.1) H 08/12/18 03:54 Consult Discharge Plan - Plan Referrals: Chelsea Kraus, RESUME SPECIALIST [Primary Care Provider] - <Darryl Fu - Last Filed: 08/12/18 14:53> Hospitalist Progress Note - Encounter Date of Encounter: 08/12/18 - Exam Vitals: Temp Pulse Resp BP Pulse Ox 98.4 F 81 18 140/89 96 08/12/18 03:00 08/12/18 08:00 08/12/18 08:00 08/12/18 08:00 08/12/18 08:00 - Assessment and Plan (1) HTN (hypertension), benign Current Visit: No Status: Chronic (2) Suicide attempt by multiple drug overdose Current Visit: Yes Status: Acute (3) Acetaminophen overdose Current Visit: Yes Status: Acute (4) Depression Current Visit: Yes Status: Acute (5) DVT prophylaxis Current Visit: No Status: Acute - Time Spent with Patient Total time spent is greater than 50% in coordination of care (as documented) at patient's floor/unit and/or counseling patient: Internal Medicine: Result - Labs CBC & Chem 7: 08/12/18 03:54 08/12/18 03:54 Labs: Short CBC 08/12/18 Range/Units 03:54 WBC 9.7 (4.3-11.1) K/mcL Hgb 15.2 (11.5-15.4) g/dL Hct 43.7 (35.3-44.9) % Plt Count 235 (140-400) K/mcL Neutrophils # 6.5 (1.6-8.9) K/mcL BMP 08/12/18 03:54 Sodium 143 Potassium 2.8 L Chloride 107 Carbon Dioxide 27 BUN 5 L Creatinine 0.51 L Glucose 161 H Calcium 8.5 L Liver Function 08/11/18 08/12/18 Range/Units 16:11 03:54 Total Bilirubin 0.5 0.4 (0.3-1.0) mg/dL Direct Bilirubin 0.1 0.1 (0.0-0.2) mg/dL AST 141 H 68 H (13-39) Units/L ALT 193 H 139 H (7-52) Units/L Alkaline Phosphatase 98 89 (34-104) Units/L Albumin 3.9 3.7 (3.5-5.7) g/dL - ABG Interpretation ABG results: PT/INR, D-dimer PT 12.9 Seconds (9.4-12.1) H 08/12/18 03:54 - Attending Attestation I examined this patient and my medical decision-making was reviewed with the Resident Physician on 08/12/18. I agree with the documented findings, disposition and treatment plan as described except to the extent set forth below. Ms Okeefe is currently admitted for acute intentional OD of Tylenol. She remains moderate to high risk due to potential for worsening clinical status. Ms Okeefe is alert and oriented. She is very tearful and regrets her actions. She is hungry now. No fever or chills. No CP or SOB. Exam alert Comfortable but tearful Mucus membranes dry Heart reg with systolic murmur Lungs clear at this time Abd soft and nontender No edema I/P 1. Intentional OD of acetaminophen - LFTs increased but now decreasing. Overall she is medically clear for discharge to psych. To transfer out of ICU. 2. Suicide attempt 3. Hypokalemia - new today. Replace 4. Depression 5. HTN Further diagnoses and plan as above. <Aline Acevedo - Last Filed: 08/12/18 08:51> (1) Suicide attempt by multiple drug overdose Qualifiers: Encounter type: initial encounter Qualified Code(s): T50.902A - Poisoning by unspecified drugs, medicaments and biological substances, intentional self-harm, initial encounter <Darryl Fu - Last Filed: 08/12/18 14:53> (2) Suicide attempt by multiple drug overdose Qualifiers: Encounter type: subsequent encounter Qualified Code(s): T50.902D - Poisoning by unspecified drugs, medicaments and biological substances, intentional self-jimenes rm, subsequent encounter (3) Acetaminophen overdose Qualifiers: Encounter type: subsequent encounter Injury intent: intentional self-harm Qualified Code(s): T39.1X2D - Poisoning by 4-Aminophenol derivatives, intention al self-harm, subsequent encounter (4) Depression Qualifiers: Depression Type: major depressive disorder Major depression recurrence: recurrent Active/Remission status: currently active Major depression episode severity: severe Psychotic features: without psychotic features Qualified Code(s): F33.2 - Major depressive disorder, recurrent severe without psychotic features
[2018-08-12] MEDS ORDERED: Gabapentin 100 MG CAPSULE PO SCH (09:00)
[2018-08-12] MEDS ORDERED: Calcium Gluconate 2,000 MG in 0.9 % Sodium Chloride 100 ML IVPB ONE (13:54)
[2018-08-12 14:35] LABS: VBG Ionized Calcium 1.15 mmol/L (1.15-1.35)
[2018-08-12] MEDS: Nicotine 21 MG PATCH.TD24 TD SCH (15:29)
[2018-08-12] MEDS ORDERED: Nicotine 21 MG PATCH.TD24 TD SCH (18:30)
[2018-08-12] MEDS ORDERED: Promethazine 12.5 MG in 0.9 % Sodium Chloride 50 ML IVPB PRN (19:06)
[2018-08-12] MEDS: Lisinopril 20 MG TABLET PO SCH (21:43)
[2018-08-13 04:45] LABS: Basophils % 0.4 %; Eosinophils # 0.1 K/mcL (0.0-0.6); Eosinophils % 0.9 %; Hematocrit 42.7 % (35.3-44.9); Hemoglobin 14.3 g/dL (11.5-15.4); Immature Granulocytes % 0.2 % (0-4); Lymphocytes # 4.1 K/mcL (0.6-4.6); Lymphocytes % 43.2 %; Mean Corpuscular HGB Conc 33.5 g/dL (31.6-35.5); Mean Corpuscular Hemoglobin 31.4 pg (28.0-33.3); Mean Corpuscular Volume 93.6 fL (83.0-100.0); Mean Platelet Volume 9.9 fL (9.4-12.4); Monocytes # 0.7 K/mcL (0.0-1.3); Monocytes % 7.3 %; Neutrophils # 4.6 K/mcL (1.6-8.9); Platelet Count 224 K/mcL (140-400); Red Blood Count 4.56 M/mcL (3.82-4.97); Red Cell Distribution Width 13.5 % (11.5-14.5)
[2018-08-13 05:02] LABS: BUN/Creatinine Ratio 15 (6-26); Blood Urea Nitrogen 8 mg/dL (6-20); Calcium 8.7 mg/dL (8.6-10.3); Carbon Dioxide 27 mEq/L (23-29); Chloride 108 mEq/L (98-107); Glucose 115 mg/dL (70-105); Osmolality,Calculated 295 (280-300); Potassium 3.6 mEq/L (3.5-5.1); Sodium 143 mEq/L (136-145); eGFR For Non-African Americans > 60 (> 60)
[2018-08-13] MEDS: *HR* Heparin 5,000 UNIT/ML VIAL SQ SCH (05:23)
[2018-08-13] MEDS: Ondansetron 4 MG/2 ML VIAL IVP PRN (05:24)
[2018-08-13] MEDS: Lisinopril 20 MG TABLET PO SCH (08:16)
[2018-08-13] MEDS: Nicotine 21 MG PATCH.TD24 TD SCH (08:19)
[2018-08-13] MEDS ORDERED: Gabapentin 100 MG CAPSULE PO SCH (09:00)
[2018-08-13] MEDS ORDERED: amLODIPine 5 MG TABLET PO SCH (09:00)
--- NOTE | 2018-08-13 09:20 | Internal Med Progress Note ---
<CurtisAline - Last Filed: 08/13/18 09:17> Hospitalist Progress Note - Encounter Date of Encounter: 08/13/18 Time of Encounter: 09:17 - Subjective Interval History: Patient is alert. Headache and intermittent nausea. She is ambulating to the restroom down the [place]. - Exam Vitals: Temp Pulse Resp BP Pulse Ox 98.1 F 70 16 128/83 94 08/13/18 07:00 08/13/18 07:00 08/13/18 07:00 08/13/18 07:00 08/13/18 03:52 Exam: General: alert, NAD HEENT: normocephalic, atraumatic, PEERLA EOMI, neck supple, trachea midline, external ears normal, MMM Cardiac: RRR, 4/6 systolic murmur Respiratory: CTAB Abdomen: soft, nontender, BS present Extremities: posterior tibial pulses 2/4 equal, no edema Neuro: A&Ox3 Psych: flat affect - Assessment and Plan (1) Suicide attempt by multiple drug overdose Status: Acute Assessment and Plan: awake and alert transfer to (2) Major depressive disorder, severe Status: Acute Assessment and Plan: transfer to today management by psychiatry (3) Heart murmur on physical examination Status: Acute Assessment and Plan: echo with normal valvular function EF 70-75% hyperdynamic LV (4) HTN (hypertension), benign Status: Chronic Assessment and Plan: stable continue home medications (5) Hypokalemia Status: Resolved Assessment and Plan: resolved DVT Prophylaxis: ambulate - Time Spent with Patient Total time spent is greater than 50% in coordination of care (as documented) at patient's floor/unit and/or counseling patient: Internal Medicine: Result - Labs CBC & Chem 7: 08/13/18 04:01 08/13/18 04:01 Labs: Short CBC 08/13/18 Range/Units 04:01 WBC 9.5 (4.3-11.1) K/mcL Hgb 14.3 (11.5-15.4) g/dL Hct 42.7 (35.3-44.9) % Plt Count 224 (140-400) K/mcL Neutrophils # 4.6 (1.6-8.9) K/mcL BMP 01/03/19 01/04/19 14:16 04:01 Sodium 143 Potassium 3.9 D 3.6 Chloride 108 H Carbon Dioxide 27 BUN 8 Creatinine 0.55 L Glucose 115 H Calcium 8.7 - ABG Interpretation ABG results: PT/INR, D-dimer PT 12.9 Seconds (9.4-12.1) H 08/12/18 03:54 - Impressions Impressions Echocardiogram 08/12/18 08:58 Impressions: LVEF 70-75%, hyperdynamic LV. Normal LV chamber size, wall thickness and function. Normal right ventricular structure and function. No significant valvular dysfunction. No evidence of pulmonary hypertension. Left Ventricular Wall Motion: Rest Echo Findings The apex, apical inferior, mid inferior, basal inferior, apical anterior, mid anterior, basal anterior, apical septal, mid inferior septal, basal inferior septal, apical lateral, mid anterior lateral, basal anterior lateral, mid anterior septal, mid inferior lateral, basal anterior septal and basal inferior lateral tang were hyperkinetic. Findings: Study Quality * Technically adequate exam. ECG Findings * Normal sinus rhythm. Left Ventricle * LVEF 70-75%, hyperdynamic LV. * Normal LV chamber size, wall thickness and function. * Normal left ventricular diastolic function. Right Ventricle * Normal right ventricular structure and function. Left Atrium * Normal left atrial size. Right Atrium * Normal right atrial size. Interatrial Septum * Interatrial septum not well evaluated. * Non-diagnostic of PFO by color Doppler. Aortic Valve * Aortic valve not well visualized. * No aortic stenosis. Elevated LVOT gradient due to hyperdynamic LV. * Trace aortic regurgitation. Mitral Valve * Normal mitral valve structure. * No mitral stenosis. * Trace mitral regurgitation. Tricuspid Valve * Normal tricuspid valve structure. * No tricuspid stenosis. * Trace tricuspid regurgitation. * Unable to estimate RVSP due to lack of TR jet. * No evidence of pulmonary hypertension. * Estimated RA pressure is 3 mmHg. Pulmonic Valve * Pulmonic valve is not well visualized. * No pulmonic stenosis. * No pulmonic regurgitation. Aorta * Normally sized aortic root. Pericardium * The pericardium appears normal. IVC * Normal IVC dimensions and inspiratory collapse. Consult Discharge Plan - Plan Instructions: Depression (DC), Suicide Prevention for Adults (GEN) Referrals: Chelsea Kraus, [facility] [Primary Care Provider] - <Darryl Fu - Last Filed: 08/15/18 18:47> Hospitalist Progress Note - Encounter Date of Encounter: 08/13/18 - Exam Vitals: Temp Pulse Resp BP Pulse Ox 98.8 F 70 16 138/85 96 08/13/18 16:00 08/13/18 16:00 08/13/18 16:00 08/13/18 16:00 08/13/18 16:00 - Assessment and Plan (1) HTN (hypertension), benign Status: Chronic (2) Suicide attempt by multiple drug overdose Status: Acute (3) Acetaminophen overdose Status: Acute (4) Depression Status: Acute (5) Tobacco abuse Status: Chronic - Time Spent with Patient Total time spent is greater than 50% in coordination of care (as documented) at patient's floor/unit and/or counseling patient: Internal Medicine: Result - Labs CBC & Chem 7: 08/13/18 04:01 08/13/18 04:01 - ABG Interpretation ABG results: PT/INR, D-dimer PT 12.9 Seconds (9.4-12.1) H 08/12/18 03:54 - Attending Attestation Please see discharge summary of this date. <Aline Acevedo - Last Filed: 08/13/18 09:17> (1) Suicide attempt by multiple drug overdose Qualifiers: Encounter type: subsequent encounter Qualified Code(s): T50.902D - Poisoning by unspecified drugs, medicaments and biological substances, intentional self- harm, subsequent encounter <Darryl Fu - Last Filed: 08/15/18 18:47> (2) Suicide attempt by multiple drug overdose Qualifiers: Encounter type: subsequent encounter Qualified Code(s): T50.902D - Poisoning by unspecified drugs, medicaments and biological substances, intentional self- harm, subsequent encounter (3) Acetaminophen overdose Qualifiers: Encounter type: subsequent encounter Injury intent: intentional self-harm Qualified Code(s): T39.1X2D - Poisoning by 4-Aminophenol derivatives, intentional self-harm, subsequent encounter (4) Depression Qualifiers: Depression Type: major depressive disorder Major depression recurrence: recurrent Active/Remission status: currently active Major depression episode severity: severe Psychotic features: without psychotic features Qualified Code(s): F33.2 - Major depressive disorder, recurrent severe without psychotic features
[2018-08-13] MEDS ORDERED: *HR* LORazepam 0.5 MG TABLET PO PRN (09:38)
[2018-08-13] MEDS ORDERED: Promethazine 12.5 MG in 0.9 % Sodium Chloride 50 ML IVPB PRN (09:38)
[2018-08-13] MEDS ORDERED: Ibuprofen 400 MG TABLET PO PRN (09:38)
[2018-08-13 16:02] VITALS: BP 138/85
--- NOTE | 2018-08-13 16:56 | Discharge Summary ---
<Aline Acevedo - Last Filed: 08/13/18 16:49> Date of Encounter: 08/13/18 Time of Encounter: 16:49 - Discharge Diagnosis (1) Suicide attempt by multiple drug overdose Priority: Primary Status: Acute Qualifiers: Encounter type: subsequent encounter Qualified Code(s): T50.902D - Poisoning by unspecified drugs, medicaments and biological substances, intentional self-harm, subsequent encounter (2) Major depressive disorder, severe Priority: Secondary Status: Acute (3) Heart murmur on physical examination Priority: Secondary Status: Acute (4) HTN (hypertension), benign Priority: Secondary Status: Chronic (5) Hypokalemia Priority: Secondary Status: Resolved Hospital course: Ms. Okeefe is a 48 year old female admitted following multiple drug overdose. From ER note: "Patient states that she is been feeling depressed and was hearing voices been telling her not to take the pills however she felt like they are using reverse psychology so she took multiple lorazepam, Vicodin, gabapentin, Tylenol PM and lisinopril as well as metoprolol. Patient states that she is unsure exactly how much she took of each but estimates that she took 10-12 gabapentin, 4 Vicodin, 4Tylenol, and l 20 lisinopril and 20 metoprolol." She was very somnolent on admission, but maintained her airway. BP was high in ER 190/111, this self resolved and home po anti-hypertensives were restarted the following day. Psychiatry was consulted and stated the patient could be transferred to after being medically cleared and after step down from ICU, where she was placed in case she would need to be intubated. The day after admission, the patient had a potassium of 2.8, she was given oral and IV potassium repletion and the hypokalemia has been normal since repletion. She has been out of the ICU on a medical floor for >24 hours and is now safe for transfer to . Discharge discussed with: patient - Time Spent with Patient Total time spent providing and/or coordinating discharge services: - Discharge Medications Home Medications: LORazepam [Ativan] 0.5 mg PO BID PRN 05/06/17 [History] Lisinopril [Zestril] 20 mg PO BID 05/06/17 [History] Metoprolol [Lopressor] 25 mg PO BID 05/06/17 [History] Escitalopram [Lexapro] 10 mg PO DAILY 08/11/18 [History] Gabapentin [Neurontin] 100 mg PO DAILY 08/11/18 [History] Allergies/Adverse Reactions: Allergy/AdvReac Type Severity Reaction Status Date / Time hydrochlorothiazide Allergy See Verified 08/11/18 08:46 Comments Penicillins Allergy See Verified 08/11/18 08:46 Comments Sulfa (Sulfonamide Allergy See Verified 08/11/18 08:46 Antibiotics) Comments codeine AdvReac Nausea Verified 08/11/18 08:46 Date of admission: 08/11/18 00:45 Primary care physician: Chelsea Kraus CNP Consults: 08/11/18 03:24 Consult to Psychiatry [CONS] Routine Consulting Provider: Psychiatry Queen Reason consult: Kershaw slip on chart Other reason and/or additional details: Hx of anxiety and depression; overdose multiple drugs with intent of suicide; reported auditory hallucinations Kershaw Slip initiated date and time: 08/10/2018 20:03 Call Completed: No Discharging clinician: Aline Acevedo Anticipated date of discharge: 08/13/18 - Constitutional Vitals: Temp Pulse Resp BP Pulse Ox 98.8 F 70 16 138/85 96 08/13/18 16:00 08/13/18 16:00 08/13/18 16:00 08/13/18 16:00 08/13/18 16:00 Exam: General: alert, NAD HEENT: normocephalic, atraumatic, PEERLA EOMI, neck supple, trachea midline, external ears normal, MMM Cardiac: RRR, 4/6 systolic murmur Respiratory: CTAB Abdomen: soft, nontender, BS present Extremities: posterior tibial pulses 2/4 equal, no edema Neuro: A&Ox3 Psych: flat affect - Patient Status Disposition: Transfer Psychiatric Hosp Condition: Serious Functional capacity at discharge: independent ambulation Overall status at discharge: patient is not back to baseline - Discharge Instructions Instructions: Depression (DC), Suicide Prevention for Adults (GEN) Follow Up With: Chelsea Kraus CNP [Primary Care Provider] - Forms: ED Satisfaction Letter - Diet and Activity Diet: regular diet <Darryl Fu - Last Filed: 08/13/18 18:34> Date of Encounter: 08/13/18 - Discharge Diagnosis (1) HTN (hypertension), benign Status: Chronic (2) Suicide attempt by multiple drug overdose Status: Acute Qualifiers: Encounter type: subsequent encounter Qualified Code(s): T50.902D - Poisoning by unspecified drugs, medicaments and biological substances, intentional self-harm, subsequent encounter (3) Acetaminophen overdose Priority: Primary Status: Acute Qualifiers: Encounter type: subsequent encounter Injury intent: intentional self-harm Qualified Code(s): T39.1X2D - Poisoning by 4-Aminophenol derivatives, intentional self-harm, subsequent encounter (4) Depression Priority: Secondary Status: Acute Qualifiers: Depression Type: major depressive disorder Major depression recurrence: recurrent Active/Remission status: currently active Major depression episode severity: severe Psychotic features: without psychotic features Qualified Code(s): F33.2 - Major depressive disorder, recurrent severe without psychotic features (5) Tobacco abuse Priority: Secondary Status: Chronic Hospital course: Ms. Okeefe is a 48 year old female - Time Spent with Patient Total time spent providing and/or coordinating discharge services: Date of admission: 08/11/18 00:45 Primary care physician: Chelsea Kraus CNP Consults: 08/11/18 03:24 Consult to Psychiatry [CONS] Routine Consulting Provider: Psychiatry Rylie Reason consult: Kershaw slip on chart Other reason and/or additional details: Hx of anxiety and depression; overdose multiple drugs with intent of suicide; reported auditory hallucinations Kershaw Slip initiated date and time: 08/10/2018 20:03 Call Completed: No - Constitutional Vitals: Temp Pulse Resp BP Pulse Ox 98.8 F 70 16 138/85 96 08/13/18 16:00 08/13/18 16:00 08/13/18 16:00 08/13/18 16:00 08/13/18 16:00 - Attending Attestation I examined this patient and my medical decision-making was reviewed with the Resident Physician on 08/13/18. I agree with the documented findings, disposition and treatment plan as described except to the extent set forth below. Ms Okeefe was admitted due to intentional OD of Tylenol in suicide attempt. Her liver function did increase some and then decreased. She was evaluated by psychiatry and is to be admitted to [facility]. Echo done for murmur and negative. Exam alert Comfortable Tearful Mucus membranes dry Heart reg with murmur No wheeze abd soft No edema Plan D/C to [facility] today.
[2018-08-13] MEDS ORDERED: *HR* Heparin 5,000 UNIT/ML VIAL SQ SCH (18:00)
[2018-08-13] MEDS ORDERED: Lisinopril 20 MG TABLET PO SCH (21:00)
[2018-08-14] MEDS ORDERED: Gabapentin 100 MG CAPSULE PO SCH (09:00)
[2018-08-14] MEDS ORDERED: amLODIPine 5 MG TABLET PO SCH (09:00)
[2018-08-14] MEDS ORDERED: Nicotine 21 MG PATCH.TD24 TD SCH (09:00)
== END 2018-08-13 16:19 | DRG 918 ==
LOC: EMEROOARM 19:44 → ICNU 19:44 → SUATTDRO 08-11 00:45 → ICNU 08-11 01:01 → 2ANU 08-12 10:41
PROVIDERS: ADMIT Internal Medicine; ATTEND Internal Medicine

== ENCOUNTER 2019-01-05 05:49 | Observation (INO) ==
[2019-01-05] MEDS ORDERED: 0.9 % Sodium Chloride 1,000 ML IVC ONE ×2 (06:48→08:32)
--- NOTE | 2019-01-05 07:05 | Emergency Department Note ---
Disposition Clinical Impression: Dizziness Syncope Qualifiers: Syncope type: unspecified Qualified Code(s): R55 - Syncope and collapse Disposition: Admitted As Inpatient Condition: Good Referrals: NONE,PCP [Primary Care Provider] - Time of Disposition: 10:09 Dizziness HPI - General Chief Complaint: ED Dizziness Stated Complaint: I'm still lightheaded Time Seen by Provider: 01/05/19 06:02 Source: patient, family Mode of arrival: ambulatory Limitations: no limitations Nursing Notes Reviewed: Yes Vital Signs Reviewed: Yes - History of Present Illness HPI Narrative: Alert and oriented nontoxic-appearing 48-year-old female with a history of hypertension presents for evaluation of 2 syncopal episodes and resultant persistent lightheadedness. Symptoms began early on the morning of 01/04. She states that she awoke from her sleep, stood up to go to the restroom, and "woke up on the hard floor". She states that after an unknown duration, she stood up to continue downstairs to the restroom. On her way, she began to feel lightheaded again. She states that she sat down on the top of the steps and describes another syncopal episode. She did not fall during that episode. She states that she awoke in a seated position at the top of the steps. She states that she was afraid to walk down the steps for fear of another syncopal episode so she slid herself down to the base of the steps. It was at that time, that she notified family members and was brought to the emergency department for evaluation. At the time, she complained of only some left posterior chest wall pain. She underwent laboratory screening, and x-ray imaging. Her workup here was benign. She was thought to have been suffering from hypotension due to a recent viral process as she had described a nonproductive cough, nausea, and several days worth of diarrhea. She was urged to increase clear fluid intake and follow-up with her primary care provider. She states that ever since, she has felt lightheaded, particularly with changes in position and while standing. She is unable to describe the "dizziness" stating "it feels like my head is swimming". She does not describe the sensation as a spinning of her surroundings. She does complain of a left occipital headache, stating that she must of hit her head when she fell. She does endorse some intermittent palpitations but denies any chest pain or pain with inspiration. She denies any hemoptysis or lower extremity swelling/pain. She denies any blurred vision but does describe occasional scotomas. She denies any overt chest pain or pressure. She denies any difficulty breathing. She denies any abdominal pain. She denies any numbness/tingling/weakness of the extremities. She endorses some mild nausea but denies any vomiting. Pt Subjective Complaint: dizziness, lightheadedness Onset (ago): day(s) Timing: sudden onset Description: lightheadedness History of similar episodes: No History of trauma: Yes Severity: moderate Improves with: remaining still Worsens with: movement Associated symptoms: Reports: syncope, vision changes, nausea, palpitations. Denies: ataxia, chest pain, confusion, diaphoresis, fever, shortness of breath, weakness, vomiting - Related Data Home Medications Medication Instructions Recorded Confirmed Lisinopril [Zestril] 20 mg PO BID 05/06/17 01/04/19 Metoprolol [Lopressor] 25 mg PO BID 05/06/17 01/04/19 Citalopram Hydrobromide [Celexa] 20 mg PO DAILY 11/13/18 01/04/19 Allergies Allergy/AdvReac Type Severity Reaction Status Date / Time hydrochlorothiazide Allergy See Verified 01/05/19 05:49 Comments Penicillins Allergy See Verified 01/05/19 05:49 Comments Sulfa (Sulfonamide Allergy See Verified 01/05/19 05:49 Antibiotics) Comments codeine AdvReac Nausea Verified 01/05/19 05:49 All systems ED: reviewed and negative except as stated. Review of Systems: As Per HPI Constitutional: Denies: fever, chills, weakness, weight change Eyes: Reports: as per HPI, other (Scotomas). Denies: eye pain, eye discharge, vision change ENT ED: Denies: ear pain, throat pain, dental pain, hearing loss, epistaxis, congestion, dysphagia Cardiovascular: Reports: as per HPI, palpitations, syncope. Denies: chest pain, dyspnea on exertion, edema Respiratory: Reports: as per HPI, cough. Denies: dyspnea, wheezes, hemoptysis, stridor, sputum production Gastrointestinal: Reports: as per HPI, nausea. Denies: abdominal pain, vomiting, diarrhea, constipation, hematemesis, melena, hematochezia Genitourinary: Denies: dysuria, frequency, hematuria, discharge Musculoskeletal: Denies: back pain, neck pain, arthralgia, myalgia Integumentary: Denies: rash, abrasion, lesions Neurological: Reports: as per HPI, headache. Denies: weakness, numbness, paresthesias, confusion, abnormal gait, vertigo Psychiatric: Denies: anxiety, depression, suicidal thoughts, homicidal thoughts, auditory hallucinations, visual hallucinations Endocrine: Denies: fatigue Hematological/Lymphatic: Denies: easy bleeding, easy bruising Allergic/Immunologic: Denies: facial swelling, urticaria Past Medical History - Past Medical History Attestation: Yes The following information was validated with the patient. Source: patient, nursing notes reviewed Medical history: Reports: hypertension Surgical history: Reports: , cholecystectomy Psychiatric history: Reports: anxiety, depression, prior suicide attempt, previous psychiatric hospitalization - Social History Smoking Status: Current every day smoker Smokeless Tobacco Status: No Alcohol use: Reports: none Drug use: Reports: prescription drug abuse, other Physical Exam - General Limitations: no limitations General appearance: alert - Head Head exam: atraumatic, normocephalic, normal inspection - Expanded Head Exam Head exam physicial: Absent: laceration, abrasion, contusion, hematoma, raccoon eyes, Marti's sign - Eye Eye exam: Present: normal appearance, PERRL, EOMI. Absent: scleral icterus, conjunctival injection, nystagmus - Expanded Eye Exam Pupils: Bilateral: regular, round, reactive, size (4) - ENT ENT exam: mucous membranes moist - Neck Neck exam: Present: normal inspection, full ROM, trachea midline. Absent: tenderness - Chest Chest inspection: Present: normal inspection, symmetric chest wall rise, tenderness (Tenderness with palpation of the left posterior chest wall. No ecchymosis, abrasions, lateral segments, or paradoxical movement.) - Respiratory Respiratory exam: Present: normal lung sounds bilaterally. Absent: respiratory distress, wheezes, stridor, accessory muscle use, prolonged expiratory phase - Cardiovascular Cardiovascular exam: Present: regular rate, normal rhythm, normal heart sounds - Abdominal Exam Abdominal exam: Present: soft, Non-Tender, normal bowel sounds. Absent: distention, guarding, rebound, rigidity - Extremities Exam Extremities exam: Present: normal inspection, full ROM. Absent: tenderness, pedal edema, calf tenderness - Back Exam Back exam: Present: normal inspection, full ROM. Absent: vertebral tenderness - Neurological Exam Neurological exam: Present: alert, oriented X3, CN II-XII intact. Absent: motor sensory deficit - Expanded Neurological Exam Patient oriented to: Present: person, place, time Speech: Present: fluid speech Cranial nerves: EOM function (II, III, IV, ): Normal, facial sensation (V): Normal, facial palsy (VII): Normal, spinal accessory function (XI): Normal, tongue deviation (XII): Normal Cerebellar function: finger to nose: Normal, heel to barba: Normal Motor strength - LUE: 5/5 Motor strength - RUE: 5/5 Motor strength - LLE: 5/5 Motor strength - RLE: 5/5 Sensory exam upper extremity: light touch: Normal Sensory exam lower extremity: light touch: Normal Coma Scale Eye Opening: Spontaneous Coma Scale Motor Response: Obeys Commands Coma Scale Verbal Response: Oriented Coma Scale Total: 15 - Psychiatric Psychiatric exam: Present: normal affect, normal mood - Skin Skin exam: Present: warm, dry, intact, normal color. Absent: rash, cyanosis, diaphoresis, erythema, pallor, mottled Course Course Narrative: The patient remains hypertensive with a systolic of 180. She will be given a dose of 5 mg of Lopressor IV. She has also been covered with 324 mg of aspirin. Again, she denied any chest pain or shortness of breath. CTA of the head and neck shows a small 2 mm outpouching at the cavernous segment of the right internal carotid present infundibulum versus aneurysm. No evidence of dissection. No large vessel stenosis. After consultation with Dr. Christiano Ness, it has been determined that the patient will be admitted to the hospital service for neurology consultation and MRI given that her symptoms have not improved after IV fluid and Antivert. - Reevaluation(s) Reevaluation #1: The patient states no improvement in symptoms after the administration of meclizine and an initial [address] results pending at this time. Disposition pending. Time: 09:07 - Consultations Consultation #1: I spoke with Ric Garcia CNP with the neurology group here. He states that neurology will be happy to see the patient in house. Consultation order to [facility]. Time: 10:00 Vital Signs Temperature 98.0 F 01/05/19 05:50 Pulse Rate 95 01/05/19 05:50 Respiratory Rate 15 01/05/19 05:50 Blood Pressure 183/124 01/05/19 05:50 O2 Sat by Pulse Oximetry 99 01/05/19 05:50 Temperature 98.0 F 01/05/19 05:50 Pulse Rate 81 01/05/19 10:00 Respiratory Rate 14 01/05/19 10:00 Blood Pressure 186/110 01/05/19 10:00 O2 Sat by Pulse Oximetry 99 01/05/19 10:00 Oxygen Delivery Oxygen Delivery Room Air Dizziness - Medical Records Medical records reviewed: Yes I reviewed the patient's medical records. - Lab Data Lab results reviewed: Yes I reviewed the patient's lab results. Lab results narrative: Lab Results 01/05/19 01/05/19 01/05/19 Range/Units 06:56 06:56 06:56 WBC 9.3 (4.3-11.1) K/mcL RBC 4.97 (3.82-4.97) M/mcL Hgb 15.7 H (11.5-15.4) g/dL Hct 46.5 H (35.3-44.9) % MCV 93.6 (83.0-100.0) fL MCH 31.6 (28.0-33.3) pg MCHC 33.8 (31.6-35.5) g/dL RDW 13.5 (11.5-14.5) % Plt Count 272 (140-400) K/mcL MPV 10.2 (9.4-12.4) fL Immature Gran % 0.3 (0-4) % Seg Neutrophils % 62.2 % Lymphocytes % 25.5 % Monocytes % 10.1 % Eosinophils % 1.3 % Basophils % 0.6 % Neutrophils # 5.8 (1.6-8.9) K/mcL Lymphocytes # 2.4 (0.6-4.6) K/mcL Monocytes # 0.9 (0.0-1.3) K/mcL Eosinophils # 0.1 (0.0-0.6) K/mcL Basophils # 0.1 (0.0-0.2) K/mcL D-Dimer 369 (0-500) ng/mLFEU Sodium 144 (136-145) mEq/L Potassium 3.9 (3.5-5.1) mEq/L Chloride 109 H (98-107) mEq/L Carbon Dioxide 24 (23-29) mEq/L BUN 10 (6-20) mg/dL Creatinine 0.62 (0.60-1.20) mg/dL Est GFR ( Amer) > 60 (> 60) Est GFR (Non-Af Amer) > 60 (> 60) BUN/Creatinine Ratio 16 (6-26) Glucose 76 (70-105) mg/dL Calculated Osmolality 296 (280-300) Calcium 8.8 (8.6-10.3) mg/dL Troponin I < 0.03 (< 0.04) ng/mL Urine Color (Yellow) Urine Clarity (Clear) Urine pH (5.0-8.0) pH Units Ur Specific [place] (1.010-1.025) Urine Protein (Neg-Trace) mg/dL Urine Glucose (UA) (Normal) mg/dL Urine Ketones (Negative) mg/dL Urine Blood (Negative) Urine Nitrite (Negative) Urine Bilirubin (Negative) Urine Urobilinogen (Normal) mg/dL Ur Leukocyte Esterase (Negative) Urine Microscopic RBC (0-3) per hpf Urine Microscopic WBC (0-3) per hpf Ur Squamous Epith Cells (None-Few) per lpf Urine Bacteria (None-Few) per hpf Hyaline Casts (None-Few) per lpf Ur Culture Indicated? (NO) 01/05/19 Range/Units 07:09 WBC (4.3-11.1) K/mcL RBC (3.82-4.97) M/mcL Hgb (11.5-15.4) g/dL Hct (35.3-44.9) % MCV (83.0-100.0) fL MCH (28.0-33.3) pg MCHC (31.6-35.5) g/dL RDW (11.5-14.5) % Plt Count (140-400) K/mcL MPV (9.4-12.4) fL Immature Gran % (0-4) % Seg Neutrophils % % Lymphocytes % % Monocytes % % Eosinophils % % Basophils % % Neutrophils # (1.6-8.9) K/mcL Lymphocytes # (0.6-4.6) K/mcL Monocytes # (0.0-1.3) K/mcL Eosinophils # (0.0-0.6) K/mcL Basophils # (0.0-0.2) K/mcL D-Dimer (0-500) ng/mLFEU Sodium (136-145) mEq/L Potassium (3.5-5.1) mEq/L Chloride (98-107) mEq/L Carbon Dioxide (23-29) mEq/L BUN (6-20) mg/dL Creatinine (0.60-1.20) mg/dL Est GFR ( Amer) (> 60) Est GFR (Non-Af Amer) (> 60) BUN/Creatinine Ratio (6-26) Glucose (70-105) mg/dL Calculated Osmolality (280-300) Calcium (8.6-10.3) mg/dL Troponin I (< 0.04) ng/mL Urine Color Yellow (Yellow) Urine Clarity Cloudy A (Clear) Urine pH 6.5 (5.0-8.0) pH Units Ur Specific [place] 1.016 (1.010-1.025) Urine Protein Negative (Neg-Trace) mg/dL Urine Glucose (UA) Normal (Normal) mg/dL Urine Ketones Negative (Negative) mg/dL Urine Blood Negative (Negative) Urine Nitrite Negative (Negative) Urine Bilirubin Negative (Negative) Urine Urobilinogen Normal (Normal) mg/dL Ur Leukocyte Esterase Negative (Negative) Urine Microscopic RBC 5-15 H (0-3) per hpf Urine Microscopic WBC 5-15 H (0-3) per hpf Ur Squamous Epith Cells Many H (None-Few) per lpf Urine Bacteria Few (None-Few) per hpf Hyaline Casts None Seen (None-Few) per lpf Ur Culture Indicated? YES A (NO) Result diagrams: 01/05/19 06:56 01/05/19 06:56 Lab Results 01/05/19 01/05/19 01/05/19 Range/Units 06:56 06:56 06:56 WBC 9.3 (4.3-11.1) K/mcL RBC 4.97 (3.82-4.97) M/mcL Hgb 15.7 H (11.5-15.4) g/dL Hct 46.5 H (35.3-44.9) % MCV 93.6 (83.0-100.0) fL MCH 31.6 (28.0-33.3) pg MCHC 33.8 (31.6-35.5) g/dL RDW 13.5 (11.5-14.5) % Plt Count 272 (140-400) K/mcL MPV 10.2 (9.4-12.4) fL Immature Gran % 0.3 (0-4) % Seg Neutrophils % 62.2 % Lymphocytes % 25.5 % Monocytes % 10.1 % Eosinophils % 1.3 % Basophils % 0.6 % Neutrophils # 5.8 (1.6-8.9) K/mcL Lymphocytes # 2.4 (0.6-4.6) K/mcL Monocytes # 0.9 (0.0-1.3) K/mcL Eosinophils # 0.1 (0.0-0.6) K/mcL Basophils # 0.1 (0.0-0.2) K/mcL D-Dimer 369 (0-500) ng/mLFEU Sodium 144 (136-145) mEq/L Potassium 3.9 (3.5-5.1) mEq/L Chloride 109 H (98-107) mEq/L Carbon Dioxide 24 (23-29) mEq/L BUN 10 (6-20) mg/dL Creatinine 0.62 (0.60-1.20) mg/dL Est GFR ( Amer) > 60 (> 60) Est GFR (Non-Af Amer) > 60 (> 60) BUN/Creatinine Ratio 16 (6-26) Glucose 76 (70-105) mg/dL Calculated Osmolality 296 (280-300) Calcium 8.8 (8.6-10.3) mg/dL Troponin I < 0.03 (< 0.04) ng/mL Urine Color (Yellow) Urine Clarity (Clear) Urine pH (5.0-8.0) pH Units Ur Specific [place] (1.010-1.025) Urine Protein (Neg-Trace) mg/dL Urine Glucose (UA) (Normal) mg/dL Urine Ketones (Negative) mg/dL Urine Blood (Negative) Urine Nitrite (Negative) Urine Bilirubin (Negative) Urine Urobilinogen (Normal) mg/dL Ur Leukocyte Esterase (Negative) Urine Microscopic RBC (0-3) per hpf Urine Microscopic WBC (0-3) per hpf Ur Squamous Epith Cells (None-Few) per lpf Urine Bacteria (None-Few) per hpf Hyaline Casts (None-Few) per lpf Ur Culture Indicated? (NO) 01/05/19 Range/Units 07:09 WBC (4.3-11.1) K/mcL RBC (3.82-4.97) M/mcL Hgb (11.5-15.4) g/dL Hct (35.3-44.9) % MCV (83.0-100.0) fL MCH (28.0-33.3) pg MCHC (31.6-35.5) g/dL RDW (11.5-14.5) % Plt Count (140-400) K/mcL MPV (9.4-12.4) fL Immature Gran % (0-4) % Seg Neutrophils % % Lymphocytes % % Monocytes % % Eosinophils % % Basophils % % Neutrophils # (1.6-8.9) K/mcL Lymphocytes # (0.6-4.6) K/mcL Monocytes # (0.0-1.3) K/mcL Eosinophils # (0.0-0.6) K/mcL Basophils # (0.0-0.2) K/mcL D-Dimer (0-500) ng/mLFEU Sodium (136-145) mEq/L Potassium (3.5-5.1) mEq/L Chloride (98-107) mEq/L Carbon Dioxide (23-29) mEq/L BUN (6-20) mg/dL Creatinine (0.60-1.20) mg/dL Est GFR ( Amer) (> 60) Est GFR (Non-Af Amer) (> 60) BUN/Creatinine Ratio (6-26) Glucose (70-105) mg/dL Calculated Osmolality (280-300) Calcium (8.6-10.3) mg/dL Troponin I (< 0.04) ng/mL Urine Color Yellow (Yellow) Urine Clarity Cloudy A (Clear) Urine pH 6.5 (5.0-8.0) pH Units Ur Specific [place] 1.016 (1.010-1.025) Urine Protein Negative (Neg-Trace) mg/dL Urine Glucose (UA) Normal (Normal) mg/dL Urine Ketones Negative (Negative) mg/dL Urine Blood Negative (Negative) Urine Nitrite Negative (Negative) Urine Bilirubin Negative (Negative) Urine Urobilinogen Normal (Normal) mg/dL Ur Leukocyte Esterase Negative (Negative) Urine Microscopic RBC 5-15 H (0-3) per hpf Urine Microscopic WBC 5-15 H (0-3) per hpf Ur Squamous Epith Cells Many H (None-Few) per lpf Urine Bacteria Few (None-Few) per hpf Hyaline Casts None Seen (None-Few) per lpf Ur Culture Indicated? YES A (NO) - Radiology Data Radiology results reviewed: Yes I reviewed the patient's radiology results. Chest X-Ray 01/05/19 06:06 IMPRESSION: 1. No acute radiographic abnormality in the chest. D/ / Orlin Hawley MD / Orlin Hawley MD Interpreting Provider: Orlin Hawley MD Head CTA 01/05/19 07:55 IMPRESSION: No CT evidence of acute intracranial abnormality. No high-grade stenosis or focal occlusion involving the intracranial, or cervical vasculature. No evidence of acute dissection. Approximately 2 mm outpouching arising from the cavernous segment of the right internal carotid artery. This may represent infundibulum versus tiny aneurysm. Air-fluid levels within the right frontal sinus and right maxillary sinus. Correlate with symptoms of sinusitis. Mild upper lobe emphysema. D/ / 01/05/2019 09:33:00 Grupo Blake MD / dianne Interpreting Provider: Grupo Blake MD Neck CTA 01/05/19 07:55 IMPRESSION: No CT evidence of acute intracranial abnormality. No high-grade stenosis or focal occlusion involving the intracranial, or cervical vasculature. No evidence of acute dissection. Approximately 2 mm outpouching arising from the cavernous segment of the right internal carotid artery. This may represent infundibulum versus tiny aneurysm. Air-fluid levels within the right frontal sinus and right maxillary sinus. Correlate with symptoms of sinusitis. Mild upper lobe emphysema. D/ / 01/05/2019 09:33:00 Grupo Blake MD / dianne Interpreting Provider: Grupo Blake MD - EKG Data EKG attestation: Yes I reviewed and interpreted this EKG. EKG results narrative: EKG shows a normal sinus rhythm at a rate of 72 bpm. HI interval 138, QRS duration 82, QT/QTc interval 374/410. No ectopy noted. No ST elevations. No significant ST depressions or other ischemic changes. No significant change in morphology when compared to an EKG dated from 11/18/18.
[2019-01-05 07:25] LABS: Bilirubin,Urine Negative (Negative); Blood,Urine Negative (Negative); Clarity,Urine Cloudy (Clear); Color,Urine Yellow (Yellow); Glucose,Urine (UA) Normal (Normal); Ketones,Urine Negative (Negative); Leukocyte Esterase,Urine Negative (Negative); Nitrite,Urine Negative (Negative); PH,Urine 6.5 pH Units (5.0-8.0); Protein,Urine Negative (Neg-Trace); Specific Gravity,Urine 1.016 (1.010-1.025); Urobilinogen,Urine Normal (Normal)
[2019-01-05 07:26] LABS: Bacteria,Urine Few per hpf (None-Few); Hyaline Casts,Urine None Seen per lpf (None-Few); Squamous Epithelial Cell,Urine Many per lpf (None-Few)
[2019-01-05 07:39] LABS: Basophils # 0.1 K/mcL (0.0-0.2); Basophils % 0.6 %; Eosinophils # 0.1 K/mcL (0.0-0.6); Eosinophils % 1.3 %; Hematocrit 46.5 % (35.3-44.9); Hemoglobin 15.7 g/dL (11.5-15.4); Immature Granulocytes % 0.3 % (0-4); Lymphocytes # 2.4 K/mcL (0.6-4.6); Lymphocytes % 25.5 %; Mean Corpuscular HGB Conc 33.8 g/dL (31.6-35.5); Mean Corpuscular Hemoglobin 31.6 pg (28.0-33.3); Mean Corpuscular Volume 93.6 fL (83.0-100.0); Mean Platelet Volume 10.2 fL (9.4-12.4); Monocytes # 0.9 K/mcL (0.0-1.3); Monocytes % 10.1 %; Neutrophils # 5.8 K/mcL (1.6-8.9); Platelet Count 272 K/mcL (140-400); Red Blood Count 4.97 M/mcL (3.82-4.97); Red Cell Distribution Width 13.5 % (11.5-14.5); Segmented Neutrophils % 62.2 %
[2019-01-05] MEDS ORDERED: Isovue-370 500 ML BOTTLE IVP ONE (07:55)
[2019-01-05 08:19] LABS: Potassium 3.9 mEq/L (3.5-5.1)
[2019-01-05 08:20] LABS: BUN/Creatinine Ratio 16 (6-26); Blood Urea Nitrogen 10 mg/dL (6-20); Calcium 8.8 mg/dL (8.6-10.3); Carbon Dioxide 24 mEq/L (23-29); Chloride 109 mEq/L (98-107); Glucose 76 mg/dL (70-105); Osmolality,Calculated 296 (280-300); Sodium 144 mEq/L (136-145); Troponin I < 0.03 ng/mL (< 0.04); eGFR For Non-African Americans > 60 (> 60)
[2019-01-05] MEDS ORDERED: *HR* Metoprolol 5 MG/5 ML VIAL IVP ONE (09:53)
[2019-01-05] MEDS ORDERED: Aspirin 81 MG TAB.CHEW PO ONE (09:53)
--- NOTE | 2019-01-05 10:00 | Emergency Department Note ---
Disposition Clinical Impression: Vertigo Disposition: Admitted As Inpatient Referrals: NONE,PCP [Primary Care Provider] - Time of Disposition: 10:00 General Adult HPI - General Chief complaint: ED Dizziness Stated complaint: I'm still lightheaded Time Seen by Provider: 01/05/19 06:02 Source: patient, family Mode of arrival: ambulatory Limitations: no limitations - History of Present Illness Pain Scale: 3 - Related Data Home Medications Medication Instructions Recorded Confirmed Lisinopril [Zestril] 20 mg PO BID 05/06/17 01/04/19 Metoprolol [Lopressor] 25 mg PO BID 05/06/17 01/04/19 Citalopram Hydrobromide [Celexa] 20 mg PO DAILY 11/13/18 01/04/19 Allergies Allergy/AdvReac Type Severity Reaction Status Date / Time hydrochlorothiazide Allergy See Verified 01/05/19 05:49 Comments Penicillins Allergy See Verified 01/05/19 05:49 Comments Sulfa (Sulfonamide Allergy See Verified 01/05/19 05:49 Antibiotics) Comments codeine AdvReac Nausea Verified 01/05/19 05:49 Constitutional: Denies: fever, chills, weakness, weight change Eyes: Reports: as per HPI, other ([place]). Denies: eye pain, eye discharge, vision change ENT ED: Denies: ear pain, throat pain, dental pain, hearing loss, epistaxis, congestion, dysphagia Cardiovascular: Reports: as per HPI, palpitations, syncope. Denies: chest pain, dyspnea on exertion, edema Respiratory: Reports: as per HPI, cough. Denies: dyspnea, wheezes, hemoptysis, stridor, sputum production Gastrointestinal: Reports: as per HPI, nausea. Denies: abdominal pain, vomiting, diarrhea, constipation, hematemesis, melena, hematochezia Genitourinary: Denies: dysuria, frequency, hematuria, discharge Musculoskeletal: Denies: back pain, neck pain, arthralgia, myalgia Integumentary: Denies: rash, abrasion, lesions Neurological: Reports: as per HPI, headache. Denies: weakness, numbness, paresthesias, confusion, abnormal gait, vertigo Psychiatric: Denies: anxiety, depression, suicidal thoughts, homicidal thoughts, auditory hallucinations, visual hallucinations Endocrine: Denies: fatigue Hematological/Lymphatic: Denies: easy bleeding, easy bruising Allergic/Immunologic: Denies: facial swelling, urticaria Past Medical History - Past Medical History Medical history: Reports: hypertension Surgical history: Reports: , cholecystectomy Psychiatric history: Reports: anxiety, depression, prior suicide attempt, pre vious psychiatric hospitalization - Social History Smoking Status: Current every day smoker Smokeless Tobacco Status: No Alcohol use: Reports: none Drug use: Reports: prescription drug abuse, other Physical Exam - General Limitations: no limitations General appearance: alert Course Vital Signs Temperature 98.0 F 01/05/19 05:50 Pulse Rate 95 01/05/19 05:50 Respiratory Rate 15 01/05/19 05:50 Blood Pressure 183/124 01/05/19 05:50 O2 Sat by Pulse Oximetry 99 01/05/19 05:50 Temperature 98.0 F 01/05/19 05:50 Pulse Rate 71 01/05/19 09:09 Respiratory Rate 14 01/05/19 09:09 Blood Pressure 163/106 01/05/19 09:09 O2 Sat by Pulse Oximetry 99 01/05/19 09:09 Oxygen Delivery Oxygen Delivery Room Air Medical Decision Making - Lab Data Result diagrams: 01/05/19 06:56 01/05/19 06:56 Lab Results 01/05/19 01/05/19 01/05/19 Range/Units 06:56 06:56 06:56 WBC 9.3 (4.3-11.1) K/mcL RBC 4.97 (3.82-4.97) M/mcL Hgb 15.7 H (11.5-15.4) g/dL Hct 46.5 H (35.3-44.9) % MCV 93.6 (83.0-100.0) fL MCH 31.6 (28.0-33.3) pg MCHC 33.8 (31.6-35.5) g/dL RDW 13.5 (11.5-14.5) % Plt Count 272 (140-400) K/mcL MPV 10.2 (9.4-12.4) fL Immature Gran % 0.3 (0-4) % Seg Neutrophils % 62.2 % Lymphocytes % 25.5 % Monocytes % 10.1 % Eosinophils % 1.3 % Basophils % 0.6 % Neutrophils # 5.8 (1.6-8.9) K/mcL Lymphocytes # 2.4 (0.6-4.6) K/mcL Monocytes # 0.9 (0.0-1.3) K/mcL Eosinophils # 0.1 (0.0-0.6) K/mcL Basophils # 0.1 (0.0-0.2) K/mcL D-Dimer 369 (0-500) ng/mLFEU Sodium 144 (136-145) mEq/L Potassium 3.9 (3.5-5.1) mEq/L Chloride 109 H (98-107) mEq/L Carbon Dioxide 24 (23-29) mEq/L BUN 10 (6-20) mg/dL Creatinine 0.62 (0.60-1.20) mg/dL Est GFR ( Amer) > 60 (> 60) Est GFR (Non-Af Amer) > 60 (> 60) BUN/Creatinine Ratio 16 (6-26) Glucose 76 (70-105) mg/dL Calculated Osmolality 296 (280-300) Calcium 8.8 (8.6-10.3) mg/dL Troponin I < 0.03 (< 0.04) ng/mL Urine Color (Yellow) Urine Clarity (Clear) Urine pH (5.0-8.0) pH Units Ur Specific [place] (1.010-1.025) Urine Protein (Neg-Trace) mg/dL Urine Glucose (UA) (Normal) mg/dL Urine Ketones (Negative) mg/dL Urine Blood (Negative) Urine Nitrite (Negative) Urine Bilirubin (Negative) Urine Urobilinogen (Normal) mg/dL Ur Leukocyte Esterase (Negative) Urine Microscopic RBC (0-3) per hpf Urine Microscopic WBC (0-3) per hpf Ur Squamous Epith Cells (None-Few) per lpf Urine Bacteria (None-Few) per hpf Hyaline Casts (None-Few) per lpf Ur Culture Indicated? (NO) 01/05/19 Range/Units 07:09 WBC (4.3-11.1) K/mcL RBC (3.82-4.97) M/mcL Hgb (11.5-15.4) g/dL Hct (35.3-44.9) % MCV (83.0-100.0) fL MCH (28.0-33.3) pg MCHC (31.6-35.5) g/dL RDW (11.5-14.5) % Plt Count (140-400) K/mcL MPV (9.4-12.4) fL Immature Gran % (0-4) % Seg Neutrophils % % Lymphocytes % % Monocytes % % Eosinophils % % Basophils % % Neutrophils # (1.6-8.9) K/mcL Lymphocytes # (0.6-4.6) K/mcL Monocytes # (0.0-1.3) K/mcL Eosinophils # (0.0-0.6) K/mcL Basophils # (0.0-0.2) K/mcL D-Dimer (0-500) ng/mLFEU Sodium (136-145) mEq/L Potassium (3.5-5.1) mEq/L Chloride (98-107) mEq/L Carbon Dioxide (23-29) mEq/L BUN (6-20) mg/dL Creatinine (0.60-1.20) mg/dL Est GFR ( Amer) (> 60) Est GFR (Non-Af Amer) (> 60) BUN/Creatinine Ratio (6-26) Glucose (70-105) mg/dL Calculated Osmolality (280-300) Calcium (8.6-10.3) mg/dL Troponin I (< 0.04) ng/mL Urine Color Yellow (Yellow) Urine Clarity Cloudy A (Clear) Urine pH 6.5 (5.0-8.0) pH Units Ur Specific [place] 1.016 (1.010-1.025) Urine Protein Negative (Neg-Trace) mg/dL Urine Glucose (UA) Normal (Normal) mg/dL Urine Ketones Negative (Negative) mg/dL Urine Blood Negative (Negative) Urine Nitrite Negative (Negative) Urine Bilirubin Negative (Negative) Urine Urobilinogen Normal (Normal) mg/dL Ur Leukocyte Esterase Negative (Negative) Urine Microscopic RBC 5-15 H (0-3) per hpf Urine Microscopic WBC 5-15 H (0-3) per hpf Ur Squamous Epith Cells Many H (None-Few) per lpf Urine Bacteria Few (None-Few) per hpf Hyaline Casts None Seen (None-Few) per lpf Ur Culture Indicated? YES A (NO) Attestation Statement - Attestation Attestation: For this encounter, I have reviewed the [employer] or PA documentation, treatment plan, and medical decision making; and I have had face to face time with this patient. 48 year old female presents to the ED with complanits of vertigo that has not improved with antivert/fluid hydration and CTA head/necl shows a tiny infundiulim vs aneurysm of the TERESA. Discussed case with neurolgoy and they will see in consult and admit to medicine for furhter workup of veritgo. Patient is hypertensive and we have given lopressor for therapy as she has skipped her lis inopirl and metoprolol this morning
--- NOTE | 2019-01-05 10:04 | Internal Med History&Physical ---
Date of Encounter: 01/08/19 Time of Encounter: 12:43 Internal Medicine - H&P: HPI Chief complaint: Syncope History of present illness: Ms. Okeefe is a 48 year old female who presented to the ER for further evaluation of syncopal episode. The patient stated that she has been feeling constantly lightheaded and dizzy especially when he moves when she moves her head or change from sitting to standing position. She stated that her symptoms sometimes associated with intermittent palpitation as well as nausea with no vomiting. She denying that the room is spinning around her however she reported feeling that her "head is swimming" and that she feels that she is goi ng to fall every time trying to go downstairs. The patient reported recent viral illnes that resulted and productive cough nausea and diarrhea and she thought that might be the reason of her symptoms and as a result she increase her oral intake however that was no significant improvement of her general condition. Urology was consulted by the ER staff and we will see patient in consult the patient will be admitted for further evaluation and management. Past Med Surg Social Fam HX - Past Medical History Medical history: hypertension Additional medical history: drug abuse Psychiatric history: anxiety, depression, prior suicide attempt, previous psychiatric hospitalization - Past Surgical History Surgical History: , cholecystectomy Additional surgical history: LEFT HAND SURGERY. - Social History Smoking Status: Current every day smoker Smokeless Tobacco Status: No Alcohol use: none Drug use: prescription drug abuse, other - Family History Mother Adopted: No Family Member Ethnicity: Non- Living Status: Hx Family Cardiac Disorders: Yes Hx Family Respiratory Disorders: Yes Hx Family Cancer: No Hx Family GI Disorders: Yes (IBS) Hx Family Endocrine Disorder: Yes (IDDM) Hx Family Neuromuscular Disorders: No Hx Family Neurologic Disorders: No Hx Family HEENT Disorders: No Hx Family Autoimmune Disorders: No Internal Medicine - H&P: Meds Lisinopril [Zestril] 20 mg PO BID 05/06/17 [History] Metoprolol [Lopressor] 25 mg PO BID 05/06/17 [History] Escitalopram [Lexapro] 20 mg PO DAILY 01/06/19 [History] amLODIPine [Norvasc] 5 mg PO DAILY 30 Days #30 tablet 01/06/19 [Rx] traZODone [TraZODone] 50 mg PO HS PRN 01/06/19 [History] Allergy/AdvReac Type Severity Reaction Status Date / Time hydrochlorothiazide Allergy See Verified 01/05/19 05:49 Comments Penicillins Allergy See Verified 01/05/19 05:49 Comments Sulfa (Sulfonamide Allergy See Verified 01/05/19 05:49 Antibiotics) Comments codeine AdvReac Nausea Verified 01/05/19 05:49 All Systems PM: A 10-system review of systems was performed and is negative for pertinent findings except as documented above in the HPI. - Constitutional Vitals: Temp Pulse Resp BP Pulse Ox 98.0 F 81 14 186/110 99 01/05/19 05:50 01/05/19 10:00 01/05/19 10:00 01/05/19 10:00 01/05/19 10:00 Exam: Exam General: In no acute distress. Respiratory exam: CTAB. no accessory muscle use, rales, rhonchi, wheezes Cardiovascular exam: RRR, +S1, +S2. no murmur, gallop, rubs. GI/Abdominal exam: Non-tender, Non-distended, normal bowel sounds, soft, no peritoneal signs. Extremities exam: no pedal edema, pulses palpable in b/l lower extremities. no calf tenderness Neurological exam: CN II-XII intact, AO X3, no focal deficits. Skin exam: No skin rash Internal Med - H&P Results - Labs CBC & Chem 7: 01/06/19 05:55 01/06/19 05:55 Labs: Short CBC 01/05/19 Range/Units 06:56 WBC 9.3 (4.3-11.1) K/mcL Hgb 15.7 H (11.5-15.4) g/dL Hct 46.5 H (35.3-44.9) % Plt Count 272 (140-400) K/mcL Neutrophils # 5.8 (1.6-8.9) K/mcL BMP 01/05/19 06:56 Sodium 144 Potassium 3.9 Chloride 109 H Carbon Dioxide 24 BUN 10 Creatinine 0.62 Glucose 76 Calcium 8.8 Cardiac Enzymes 01/05/19 Range/Units 06:56 Troponin I < 0.03 (< 0.04) ng/mL Urine 01/05/19 Range/Units 07:09 Urine Color Yellow (Yellow) Urine Clarity Cloudy A (Clear) Urine pH 6.5 (5.0-8.0) pH Units Ur Specific [place] 1.016 (1.010-1.025) Urine Protein Negative (Neg-Trace) mg/dL Urine Glucose (UA) Normal (Normal) mg/dL - Impressions ITS Impressions Chest X-Ray 01/05/19 06:06 IMPRESSION: 1. No acute radiographic abnormality in the chest. D/ / Orlin Hawley MD / Orlin Hawley MD Interpreting Provider: Orlin Hawley MD Head CTA 01/05/19 07:55 IMPRESSION: No CT evidence of acute intracranial abnormality. No high-grade stenosis or focal occlusion involving the intracranial, or cervical vasculature. No evidence of acute dissection. Approximately 2 mm outpouching arising from the cavernous segment of the right internal carotid artery. This may represent infundibulum versus tiny aneurysm. Air-fluid levels within the right frontal sinus and right maxillary sinus. Correlate with symptoms of sinusitis. Mild upper lobe emphysema. D/ / 01/05/2019 09:33:00 Grupo Blake MD / dianne Interpreting Provider: Grupo Blake MD Neck CTA 01/05/19 07:55 IMPRESSION: No CT evidence of acute intracranial abnormality. No high-grade stenosis or focal occlusion involving the intracranial, or cervical vasculature. No evidence of acute dissection. Approximately 2 mm outpouching arising from the cavernous segment of the right internal carotid artery. This may represent infundibulum versus tiny aneurysm. Air-fluid levels within the right frontal sinus and right maxillary sinus. Correlate with symptoms of sinusitis. Mild upper lobe emphysema. D/ / 01/05/2019 09:33:00 Grupo Blake MD / dianne Interpreting Provider: Grupo Blake MD - Assessment and Plan (1) Syncope Status: Acute Assessment and plan: Syncope , CTA revealed Approximately 1-2 mm outpouching arising from the cavernous segment of the right internal carotid artery. This may represent infundibulum versus tiny aneurysm. DD: *vasovagal episode *TIA *Arrhythmia *Seizure PLAN: - Telemetry - Cardiac enzymes x 2 q 8hr - EKG now and in AM - 2D Echo - EEG - Neurology consult Qualifiers: Syncope type: unspecified Qualified Code(s): R55 - Syncope and collapse (2) HTN (hypertension), benign Status: Chronic Assessment and plan: We will cont. home meds. (3) Tobacco abuse Status: Chronic (4) DVT prophylaxis Status: Acute Assessment and plan: We will place SCDs - Time Spent With Patient Total time spent is greater than 50% in coordination of care (as documented) at patient's floor/unit and/or counseling patient:
[2019-01-05] MEDS ORDERED: Naloxone 0.4 MG/ML INJ IVP PRN (12:39)
--- NOTE | 2019-01-05 13:14 | Neurology - Consult Note ---
<Ric Garcia - Last Filed: 01/05/19 12:57> Date of Encounter: 01/05/19 Time of Encounter: 12:57 Assessment and Plan (1) Syncope Current Visit: Yes Status: Acute syncopal events x 2; etiology unclear DDX cardio vs neurogenic, vs dehydration 2/2 illness, vs other TTE in 08/28 grossly unremarkable CTA head and neck is without any focal occlusion involving the intracranial or cervical vasculature. No evidence of acute dissection or acute intracranial abnormality. There was findings of an approximately 2 mm outpouching arising from the cavernous segment of the right internal carotid artery which may represent a infundibulum versus tiny aneurysm. However I do not feel this would be the cause of dizziness or syncope rec continuous telemetry repeat orthovital signs If syncope returns consider cardiac evaluation; may benefit from long-term rhythm monitoring or outpatient tilt-table testing if persistent Sycope most likely caused by dehydration 2/2 diarrhea. Has not had return of syncopal activity since the night of 01/04. Qualifiers: Syncope type: unspecified Qualified Code(s): R55 - Syncope and collapse (2) Dizziness Current Visit: Yes Status: Acute Neurological exam is nonfocal, there are no visual or gait disturbances seen, there is no dysmetria found. However, she does have a positive Romberg's but even with this finding I do not expect the dizziness to be of an acute neuropathological process, ischemic or neurovascular event in the absence of obvious focal cerebellar findings. The Dizziness is reproducible with head and neck manipulation, and position change which makes me think more of a peripheral cause. Also CTA imaging of the head/neck identified sinusitis which can also cause dizziness. At this juncture we recommending treating underlying medical issues, continue medical and supportive care. To further evaluate for acute neuropathological, ischemic or neurovascular cause will obtain an MRI of the brain. TTE from August 2018 is grossly unremarkable. CTA of the head and neck shows no acute intracranial abnormality, no high-grade stenosis or focal occlusion involving the intracranial and cervical vasculature. In regards to 2 mm outpouching arising from the cavernous segment of the right internal carotid artery and if this were a tiny aneurysm would not suspect that it would be causing the dizziness or syncope. We will continue to follow. History of Present Illness Chief complaint: syncope and dizziness HPI: Ms. Okeefe is a 48 year old female with a PMH of hypertension, anxiety, depressi on, prior suicide attempt previous psychiatric hospitalization. She presents to the ED for reevaluation of syncope and dizziness. She reports a recent URI with viral sx including nasal congestion, sinus pressure, ear pressure, lightheadedness, and cough. She has also had nausea and diarrhea and is reporting poor oral intake. She reports that Thursday night she awoke to go to the restroom the next she remembers is waking up on the floor. She does not remember losing consciousness and was no witness to this event. She reports that shortly after the syncopal event she attempted to stand up to walk downstairs but upon standing she began to feel dizzy so she sat down on the top of the steps and again lost consciousness for an unknown duration. Subsequently, EMS brought the patient into the ED for further evaluation of syncope. A chest x-ray was completed and was unremarkable. Cervical spine x- ray showed no acute findings. She was then discharged home and told to return to the ED should she experience another syncopal event. She returns this morning and reports that when she arose from bed she was extremely dizzy. She notes that the dizziness is worse with a change in positio n and head movement and improves when sitting still. She denies any return of syncope since discharge from the ED on 01/04/19. While in the ED today she had a CTA of the head and neck which showed no flow limiting stenosis and no intracranial abnormalities. There was findings of an approximately 2 mm outpouching arising from the cavernous segment of the right internal carotid artery which may represent infundibulum versus tiny aneurysm. Also, there appears to be sinusitis with air-fluid levels in the right frontal sinus and right maxillary sinus. Orthostatic vital signs were obtained in the ED were negative for orthostasis. CBC and chemistry were grossly unremarkable. EKG was without acute findings showing sinus rhythm rate of 90. Urinalysis with cloudy urine and pyuria concerning for possible UTI. Otherwise the rest of the workup has been unremarkable. On examination this afternoon the patient reports that the dizziness persists. She denies any "room spinning sensation" but reports that her head feels heavy and feels like she is having difficulties with balance when going from a seated to standing position, rolling over or moving her head while walking. Otherwise she denies any acute neurological complaints. Neurology will continue to follow and assist with her Cause of syncope and dizziness. Past Med Surg Social Fam HX - Past Medical History Medical history: hypertension Additional medical history: drug abuse Psychiatric history: anxiety, depression, prior suicide attempt, previous psychiatric hospitalization - Past Surgical History Surgical History: , cholecystectomy Additional surgical history: LEFT HAND SURGERY. - Social History Smoking Status: Current every day smoker Packs per day: 1 Smokeless Tobacco Status: No Alcohol use: none Drug use: prescription drug abuse, other - Family History Mother Adopted: No Family Member Ethnicity: Non- Living Status: Hx Family Cardiac Disorders: Yes Hx Family Respiratory Disorders: Yes Hx Family Cancer: No Hx Family GI Disorders: Yes (IBS) Hx Family Endocrine Disorder: Yes (IDDM) Hx Family Neuromuscular Disorders: No Hx Family Neurologic Disorders: No Hx Family HEENT Disorders: No Hx Family Autoimmune Disorders: No Medications and Allergies Lisinopril [Zestril] 20 mg PO BID 05/06/17 [History] Metoprolol [Lopressor] 25 mg PO BID 05/06/17 [History] Citalopram Hydrobromide [Celexa] 20 mg PO DAILY 11/13/18 [History] Allergy/AdvReac Type Severity Reaction Status Date / Time hydrochlorothiazide Allergy See Verified 01/05/19 05:49 Comments Penicillins Allergy See Verified 01/05/19 05:49 Comments Sulfa (Sulfonamide Allergy See Verified 01/05/19 05:49 Antibiotics) Comments codeine AdvReac Nausea Verified 01/05/19 05:49 All Systems: The remainder of the systems were reviewed and are negative Review of Systems: REVIEW OF SYSTEMS GENERAL: Positive fever, chills, fatigue, malaise, URI symptoms NEUROLOGIC: Negative for any blurry vision, blind spots, double vision, facial asymmetry, dysphagia, dysarthria, hemiparesis, hemisensory deficits, vertigo, ataxia, seizures, paralysis, tingling, numbness, unilateral weakness or numbness/tingling Positive-dizziness, disequilibrium HEENT: Negative for any headaches, neck stiffness, photophobia, phonophobia, tinnitus, decreased hearing, ear discharge Positive-reporting occipital tenderness and cervical spinal tenderness to palpation S/P syncopal event, sinus pressure CARDIAC: Negative for any chest pain, peripheral edema. Positive-dyspnea on exertion, cough with exertion, palpitations and tachycardia, increased, syncope GASTROINTESTINAL: Negative for any abdominal pain, or vomiting Positive-nausea and diarrhea GENITOURINARY: Negative for any dysuria, hematuria, incontinence. ENDOCRINE: Thyroid trouble, heat/cold intolerance, excessive sweating, thirst, hunge MUSCULOSKELETAL: Negative-loss of strength or limitations to activity Physical Examination - Vital Signs Vital Signs: Initial Vital Signs Temp Pulse Resp BP Pulse Ox 98.0 F 95 15 183/124 99 01/05/19 05:50 01/05/19 05:50 01/05/19 05:50 01/05/19 05:50 01/05/19 05:50 - Exam Exam: Examination: General Examination: *CONSTITUTIONAL: Alert and oriented x3, no acute distress *GENERAL APPEARANCE OF PATIENT appears healthy and well groomed *EYES: pupils equal, round, reactive to light and accommodation, conjunctiva clear without masses or ulcerations, fundi normal. *CARDIOVASCULAR no peripheral edema, distal temperature normal, dorsalis pedis pulses normal. See vital signs Musculoskeletal: *GAIT AND STATION dizziness with ambulation and disequilibrium noted. No ataxia, broad-based or spasticity noted. Positive Romberg's *ASSESSMENT OF MUSCLE STRENGTH IN THE UPPER AND LOWER EXTREMITIES bilateral deltoid, bicep, tricep, lens edge grinder machine strength, hip flexors ,anterior tibialis, dorsoflexion of the foot 5/5 *MUSCLE TONE IN THE UPPER AND LOWER EXTREMITIES normal. No abnormal movements, fasciculations or atrophy identified. Neurological: *ORIENTATION to person, situation, time and place *RECURRENT AND REMOTE MEMORY intact *ATTENTION AND CONCENTRATION are normal *LANGUAGE FUNCTION no significant aphasia or dysarthia was noted. *FUND OF KNOWLEDGE aware of current events, past history, vocabulary *MENTAL attention span and concentration normal. *CN II optic fundi were normal, no papilledema noted. *CN III,IV, PERRLA extraocular eye movements were full, and no ptosis noted. 3 beats of fatigable horizontal nystagmus *CN V shows normal sensation and jaw opens symmetrically. *CN VII shows normal facial movement symmetrically, upper and lower bilaterally. *CN VIII shows no significant hearing loss on exam *CN IX,,X palate elevated symmetrically *CN XI normal strength in the sternocleidomastoid muscles, symmetrical shoulder shrugging. *CN XII tongue protruded in the midline, with normal strength and movement. *SENSORY EXAMINATION light touch intact *REFLEXES: deep tendon reflexes were normal and symmetrical , grade 2/4 diffusely, no pathological reflexes were noted. *CEREBELLAR TESTING normal finger to nose, heel/knee/barba *PAIN LEVEL 0/10 Results - Laboratory Findings CBC and BMP: 01/05/19 06:56 01/05/19 06:56 Abnormal lab findings: Abnormal lab results Hgb 15.7 g/dL (11.5-15.4) H 01/05/19 06:56 Hct 46.5 % (35.3-44.9) H 01/05/19 06:56 Chloride 109 mEq/L (98-107) H 01/05/19 06:56 Cloudy (Clear) A 01/05/19 07:09 5-15 per hpf (0-3) H 01/05/19 07:09 5-15 per hpf (0-3) H 01/05/19 07:09 Ur Squamous Epith Cells Many per lpf (None-Few) H 01/05/19 07:09 Ur Culture Indicated? YES (NO) A 01/05/19 07:09 - Diagnostic Findings Additional findings: CT/CT angio neck IMPRESSION: No CT evidence of acute intracranial abnormality. No high-grade stenosis or focal occlusion involving the intracranial, or cervical vasculature. No evidence of acute dissection. Approximately 2 mm outpouching arising from the cavernous segment of the right internal carotid artery. This may represent infundibulum versus tiny aneurysm. Air-fluid levels within the right frontal sinus and right maxillary sinus. Correlate with symptoms of sinusitis. Mild upper lobe emphysema. Consult Discharge Plan - Plan Referrals: Chelsea Kraus CNP [Advanced Practice Nurse] - <Mukesh Barbour - Last Filed: 01/05/19 17:56> Date of Encounter: 01/05/19 Assessment and Plan (1) Syncope Current Visit: Yes Status: Acute I have personally performed a [id number] assessment of the patient and have re viewed the PA/CONCRETE PUMP OPERATOR note. My impressions are as follows: I agree with the assessment and plan documented above by the FITTER MACHINIST. I think it is logical to suspect that the dizziness may in fact be due to some sinusitis. There is an air-fluid level in the right frontal and right maxillary sinus. MRI imaging reveals no evidence of an acute ischemic event. CTA scan of the brain reveals a small infundibulum versus aneurysm however I do not believe that this is clinically significant and can be followed with serial CTA scans as an outpatient. I will however obtain an EEG on the outside chance this may have been some of seizure activity however does not sound typical for such. Qualifiers: Syncope type: unspecified Qualified Code(s): R55 - Syncope and collapse (2) Dizziness Current Visit: Yes Status: Acute History of Present Illness HPI: Chart was reviewed, patient was seen and examined independently. Case was discussed with the FITTER MACHINIST. I agree with his assessment of the history of present illness as stated above. I did personally review the CTA scan of the head along with the recently completed MRI scan of the brain. The MRI does not reveal any evidence of any acute diffusion deficit which rules against an acute infarct. 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 There is also in air-fluid level in the right frontal and right maxillary sinuses. I do not feel that the tiny aneurysm/infundibulum has any clinical bearing on this case. All Systems: The remainder of the systems were reviewed and are negative Review of Systems: The balance of the systems review is negative. Physical Examination - Vital Signs Vital Signs: Initial Vital Signs Temp Pulse Resp BP Pulse Ox 98.0 F 95 15 183/124 99 01/05/19 05:50 01/05/19 05:50 01/05/19 05:50 01/05/19 05:50 01/05/19 05:50 - Exam Exam: I have personally performed a [id number] assessment of the patient and have reviewed the PA/CONCRETE PUMP OPERATOR note. My impressions are as follows: I agree with the neurologic examination documented above by the FITTER MACHINIST. Results - Laboratory Findings CBC and BMP: 01/05/19 06:56 01/05/19 06:56 Abnormal lab findings: Abnormal lab results Hgb 15.7 g/dL (11.5-15.4) H 01/05/19 06:56 Hct 46.5 % (35.3-44.9) H 01/05/19 06:56 Chloride 109 mEq/L (98-107) H 01/05/19 06:56 Cloudy (Clear) A 01/05/19 07:09 5-15 per hpf (0-3) H 01/05/19 07:09 5-15 per hpf (0-3) H 01/05/19 07:09 Ur Squamous Epith Cells Many per lpf (None-Few) H 01/05/19 07:09 Ur Culture Indicated? YES (NO) A 01/05/19 07:09
[2019-01-05] MEDS: Acetaminophen 325 MG TABLET PO PRN (14:04)
[2019-01-05] MEDS: Lisinopril 20 MG TABLET PO SCH (20:06)
[2019-01-05] MEDS ORDERED: Ketorolac 30 MG/ML VIAL IVP ONE (20:20)
[2019-01-05] MEDS ORDERED: Ondansetron 4 MG/2 ML VIAL IVP PRN (20:20)
[2019-01-05] MEDS: *HR* Heparin 5,000 UNIT/ML VIAL SQ SCH (21:20)
[2019-01-05] MEDS ORDERED: Prochlorperazine 10 MG/2 ML VIAL IM ONE (23:31)
[2019-01-05] MEDS ORDERED: Prochlorperazine 10 MG/2 ML VIAL IVP ONE (23:38)
[2019-01-06] MEDS: Acetaminophen 325 MG TABLET PO PRN ×2 (05:43→12:13)
[2019-01-06] MEDS: *HR* Heparin 5,000 UNIT/ML VIAL SQ SCH ×2 (05:43→16:57)
--- NOTE | 2019-01-06 06:37 | Electrocardiograph Report ---
[facility] [employer] Test Date: 2019-01-05 Pat Name: Samantha Okeefe Department: [id number] Room: 3B55 Gender: F Access Specialist: : [id number] Requested By: Daad Kramer Order Number: [id number] Reading MD: Odilon Payton Measurements Intervals [place] Rate: 72 P: 30 MA: 138 QRS: 35 QRSD: 82 T: 61 QT: 374 QTc: 410 Interpretive Statements Sinus rhythm RSR' in V1 or V2, right VCD or RVH Electronically Signed On 01-06-2019 6:35:52 EDT by Odilon Payton
[2019-01-06 06:49] LABS: Basophils # 0.1 K/mcL (0.0-0.2); Basophils % 0.9 %; Eosinophils # 0.2 K/mcL (0.0-0.6); Eosinophils % 1.9 %; Hematocrit 45.1 % (35.3-44.9); Hemoglobin 15.1 g/dL (11.5-15.4); Immature Granulocytes % 0.2 % (0-4); Lymphocytes # 3.9 K/mcL (0.6-4.6); Lymphocytes % 45.5 %; Mean Corpuscular HGB Conc 33.5 g/dL (31.6-35.5); Mean Corpuscular Hemoglobin 31.1 pg (28.0-33.3); Mean Corpuscular Volume 92.8 fL (83.0-100.0); Mean Platelet Volume 11.1 fL (9.4-12.4); Monocytes # 0.6 K/mcL (0.0-1.3); Monocytes % 7.4 %; Neutrophils # 3.8 K/mcL (1.6-8.9); Platelet Count 207 K/mcL (140-400); Red Blood Count 4.86 M/mcL (3.82-4.97); Red Cell Distribution Width 13.4 % (11.5-14.5); Segmented Neutrophils % 44.1 %
[2019-01-06 06:54] LABS: Prothrombin Time 10.8 Seconds (9.4-12.1)
[2019-01-06 06:57] LABS: Activated Partial Thrombo Time 32.2 Seconds (26.0-36.0)
[2019-01-06 07:05] LABS: Alanine Aminotransferase 19 Units/L (7-52); Albumin 3.8 g/dL (3.5-5.7); Alkaline Phosphatase 91 Units/L (34-104); Aspartate Amino Transferase 16 Units/L (13-39); BUN/Creatinine Ratio 22 (6-26); Bilirubin,Total 0.4 mg/dL (0.3-1.0); Blood Urea Nitrogen 13 mg/dL (6-20); Calcium 8.6 mg/dL (8.6-10.3); Carbon Dioxide 26 mEq/L (23-29); Chloride 108 mEq/L (98-107); Cholesterol 115 mg/dL (< 200); Globulin 1.9 g/dL (2.4-3.5); Glucose 82 mg/dL (70-105); HDL Cholesterol 38 mg/dL (40-59); LDL Cholesterol,Calculated 56 mg/dL (0-99); Magnesium 1.8 mg/dL (1.6-2.6); Osmolality,Calculated 291 (280-300); Phosphorous 3.8 mg/dL (2.7-4.5); Potassium 3.9 mEq/L (3.5-5.1); Sodium 141 mEq/L (136-145); Total Protein 5.7 g/dL (6.4-8.9); Triglycerides 106 mg/dL (< 150); eGFR For Non-African Americans > 60 (> 60)
[2019-01-06] MEDS: Lisinopril 20 MG TABLET PO SCH (10:24)
--- NOTE | 2019-01-06 12:19 | Neurology Progress Note ---
<Ric Garcia J - Last Filed: 01/06/19 12:16> Date of Encounter: 01/06/19 Time of Encounter: 12:16 Assessment and Plan (1) Syncope Current Visit: Yes Status: Acute Clinically, the patient remained stable without return of syncope since admi ssion. The syncopal workup has included an echocardiogram which is grossly unremarkable, carotid duplex imaging revealing normal bilateral carotid systems, CTA scans finding no high-grade stenosis or focal occlusion involving the intracranial cervical vasculature. In regards to the 2 mm outpouching from the cavernous segment of the right internal carotid artery this may be a small infundibulum versus aneurysm. This can be followed outpatient with serial CTA scans. EEG pending; I do not feel that the syncope was seizure activity necessarily but this was still need to be ruled out. Qualifiers: Syncope type: unspecified Qualified Code(s): R55 - Syncope and collapse (2) Dizziness Current Visit: Yes Status: Acute Clinically, the patient remained stable without any development of neurological deficits overnight. She reports that the dizziness has improved this morning. She is able to ambulate throughout the room without any difficulty. At this juncture if he will most likely of the dizziness as a result of an acute sinusitis. Defer to primary team for management. Subjective Principal diagnosis: Dizziness and syncope Interval history: Patient seen in follow-up for dizziness and syncope. MRI of the brain negative for acute intracranial abnormality or ischemia. Dizziness most likely not caused by central neurological problem. In the setting of acute sinusitis and feel that this is most likely the cause of her dizziness. Findings were discussed with the patient. In regards to syncope she has not had any return of syncopal activity. syncopal workup pending Objective - Constitutional Vitals: Temp Pulse Resp BP Pulse Ox 98.4 F 57 16 183/128 96 01/06/19 12:09 01/06/19 12:09 01/06/19 12:09 01/06/19 12:01/06/19 12:09 Exam: Examination: General Examination: *CONSTITUTIONAL: Alert and oriented x3, no acute distress *GENERAL APPEARANCE OF PATIENT appears healthy and well groomed *EYES: pupils equal, round, reactive to light and accommodation, conjunctiva clear without masses or ulcerations, fundi normal. *CARDIOVASCULAR no peripheral edema, distal temperature normal, dorsalis pedis pulses normal. See vital signs Musculoskeletal: *GAIT AND STATION no ataxia, broad-based gait or spasticity noted. Does not appear to have any difficulty with maintaining balance *ASSESSMENT OF MUSCLE STRENGTH IN THE UPPER AND LOWER EXTREMITIES bilateral deltoid, bicep, tricep, grill prep cook strength, hip flexors ,anterior tibialis, dorsoflexion of the foot 5/5 *MUSCLE TONE IN THE UPPER AND LOWER EXTREMITIES normal. No abnormal movements, fasciculations or atrophy identified. Neurological: *ORIENTATION to person, situation, time and place *RECURRENT AND REMOTE MEMORY intact *ATTENTION AND CONCENTRATION are normal *LANGUAGE FUNCTION no significant aphasia or dysarthia was noted. *FUND OF KNOWLEDGE aware of current events, past history, vocabulary *MENTAL attention span and concentration normal. *CN II optic fundi were normal, no papilledema noted. *CN III,IV, PERRLA extraocular eye movements were full, and no ptosis noted. *CN V shows normal sensation and jaw opens symmetrically. *CN VII shows normal facial movement symmetrically, upper and lower bilaterally. *CN VIII shows no significant hearing loss on exam *CN IX,,X palate elevated symmetrically *CN XI normal strength in the sternocleidomastoid muscles, symmetrical shoulder shrugging. *CN XII tongue protruded in the midline, with normal strength and movement. *SENSORY EXAMINATION light touch intact *REFLEXES: deep tendon reflexes were normal and symmetrical , grade 2/4 diffusely, no pathological reflexes were noted. *CEREBELLAR TESTING normal finger to nose, heel/knee/barba *PAIN LEVEL 0/10 Results - Laboratory Findings CBC and BMP: 01/06/19 05:55 01/06/19 05:55 Abnormal lab findings: Abnormal lab results Hgb 15.7 g/dL (11.5-15.4) H 01/05/19 06:56 Hct 45.1 % (35.3-44.9) H 01/06/19 05:55 Chloride 108 mEq/L (98-107) H 01/06/19 05:55 5.7 g/dL (6.4-8.9) L 01/06/19 05:55 1.9 g/dL (2.4-3.5) L 01/06/19 05:55 38 mg/dL (40-59) L 01/06/19 05:55 Cloudy (Clear) A 01/05/19 07:09 5-15 per hpf (0-3) H 01/05/19 07:09 5-15 per hpf (0-3) H 01/05/19 07:09 Ur Squamous Epith Cells Many per lpf (None-Few) H 01/05/19 07:09 Ur Culture Indicated? YES (NO) A 01/05/19 07:09 Consult Discharge Plan - Plan Referrals: Chelsea Kraus ENVIRONMENTAL REMEDIATION SPECIALIST [Advanced Practice Nurse] - 01/12/19 1:00 pm Prescriptions: amLODIPine [Norvasc] 5 mg PO DAILY 30 Days #30 tablet <Mukesh Barbour Stone - Last Filed: 01/06/19 16:29> Date of Encounter: 01/06/19 Assessment and Plan (1) Syncope Current Visit: Yes Status: Acute I have personally performed a [id number] assessment of the patient and have reviewed the PA/TRANSPORTATION BROKER note. My impressions are as follows: I agree with [facility]'s assessment and plan as stated above. EEG was normal. No evidence of a primary neurologic process here. Perhaps her initial presenting symptoms were due to possible UTI versus sinusitis. In any regard or would like to follow up with her my office to establish contact and keep an eye on the small infundibulum/aneurysm. However I do not believe that this is at all associated with any of her admitting symptoms. You may discharge her at your discretion. Qualifiers: Syncope type: unspecified Qualified Code(s): R55 - Syncope and collapse (2) Dizziness Current Visit: Yes Status: Acute Subjective Interval history: Chart was reviewed, the patient was seen and examined. The case was discussed with Ric. I agree with his assessment as stated above. Patient is now back to her normal neurologic baseline. In the interim since his documentation I did review the EEG which was normal. No evidence of seizure activity identified on the EEG. Objective - Constitutional Vitals: Temp Pulse Resp BP Pulse Ox 98.1 F 70 16 174/96 97 01/06/19 15:12 01/06/19 15:12 01/06/19 15:12 01/06/19 15:12 01/06/19 15:12 Exam: I have personally performed a [id number]-[id number] assessment of the patient and have reviewed the PA/TRANSPORTATION BROKER note. My impressions are as follows: I agree with the neurologic examination as documented above. Patient is now at her normal neurologic baseline. Results - Laboratory Findings CBC and BMP: 01/06/19 05:55 01/06/19 05:55 Abnormal lab findings: Abnormal lab results Hgb 15.7 g/dL (11.5-15.4) H 01/05/19 06:56 Hct 45.1 % (35.3-44.9) H 01/06/19 05:55 Chloride 108 mEq/L (98-107) H 01/06/19 05:55 5.7 g/dL (6.4-8.9) L 01/06/19 05:55 1.9 g/dL (2.4-3.5) L 01/06/19 05:55 38 mg/dL (40-59) L 01/06/19 05:55 Cloudy (Clear) A 01/05/19 07:09 5-15 per hpf (0-3) H 01/05/19 07:09 5-15 per hpf (0-3) H 01/05/19 07:09 Ur Squamous Epith Cells Many per lpf (None-Few) H 01/05/19 07:09 Ur Culture Indicated? YES (NO) A 01/05/19 07:09
[2019-01-06] MEDS ORDERED: hydrALAZINE 10 MG TABLET PO PRN (12:26)
[2019-01-06] MEDS ORDERED: *HR* Labetalol 20 MG/4 ML SYRINGE IVP ONE (13:23)
--- NOTE | 2019-01-06 15:16 | EEG/EMG/Oth Biometrics Report ---
EEG Procedure Report Date of procedure: 01/06/19 EEG Procedure: Routine EEG Procedure Note: This is a report of a 21 channel bipolar and referential montage EEG. A posterior dominant rhythm of 10 Hz moderate voltage alpha frequency is identified symmetrically in the posterior head regions. This rhythm attenuates symmetrically with eye opening. Hyperventilation is performed and does not significantly alter the recording. There is no sleep architecture identified during the study. Photic stimulation is performed and produces a symmetric driving response. The EKG rhythm strip reveals normal sinus rhythm. Impressions: This EEG recording is within normal limits. There is no evidence of epileptiform activity identified during the recording. Comment: A normal EEG does not preclude a diagnosis of seizure or epilepsy. If the clinical suspicion for seizure activity is high, serial EEGs or perhaps a prolonged recording may increase the yield. Please correlate clinically.
[2019-01-06] MEDS ORDERED: amLODIPine 5 MG TABLET PO ONE (15:40)
--- NOTE | 2019-01-06 15:40 | Discharge Summary ---
- NOTES TO OUTPATIENT PROVIDER Notes to Outpatient Provider: May need treatment for sinusitis if does not resolve within 2 weeks. Prescribed additional amlodipine for better blood pressure control. May need cardiology evaluation if continues to have syncopal episode. Will need follow-up CT serial scans for aneurysm. Date of Encounter: 01/06/19 Time of Encounter: 12:37 - Discharge Diagnosis (1) HTN (hypertension), benign Priority: Secondary Status: Chronic (2) Dizziness Priority: Primary Status: Acute (3) Syncope Priority: Primary Status: Acute Qualifiers: Syncope type: unspecified Qualified Code(s): R55 - Syncope and collapse (4) DVT prophylaxis Priority: Secondary Status: Acute (5) Depression Priority: Secondary Status: Acute Qualifiers: Depression Type: major depressive disorder Major depression recurrence: recurrent Active/Remission status: currently active Major depression episode severity: severe Psychotic features: without psychotic features Qualified Code(s): F33.2 - Major depressive disorder, recurrent severe without psychotic features Hospital course: Ms. Okeefe is a 48 year old female with past medical history of hypertension, depression came in with a syncopal episode lightheadedness and dizziness. Patient had neurological evaluation. CTA head and neck did not show any acute intracranial abnormality, no high-grade stenosis. It did show signs of right maxillary sinusitis. MRI brain was unremarkable. Carotid Dopplers were normal. EEG was unremarkable. Patient had some diarrhea which might have led to the syncopal episode. 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 Her presentation was likely thought to be due to sinusitis. If it does not resolve in 2 weeks may need antibiotic treatment. We will discharged with home medication with additional 5 mg noted pain given significantly elevated blood pressure while inpatient. Will need close monitoring as outpatient. Discharge discussed with: patient, nurse, art consultant - Time Spent with Patient Total time spent providing and/or coordinating discharge services: Time spent: Greater than 30 minutes (40) - Discharge Medications Prescriptions: New amLODIPine [Norvasc] 5 mg PO DAILY 30 Days #30 tablet Continued Metoprolol [Lopressor] 25 mg PO BID Lisinopril [Zestril] 20 mg PO BID Citalopram Hydrobromide [Celexa] 20 mg PO DAILY Home Medications: Lisinopril [Zestril] 20 mg PO BID 05/06/17 [History] Metoprolol [Lopressor] 25 mg PO BID 05/06/17 [History] Citalopram Hydrobromide [Celexa] 20 mg PO DAILY 11/13/18 [History] amLODIPine [Norvasc] 5 mg PO DAILY 30 Days #30 tablet 01/06/19 [Rx] Allergies/Adverse Reactions: Allergy/AdvReac Type Severity Reaction Status Date / Time hydrochlorothiazide Allergy See Verified 01/05/19 05:49 Comments Penicillins Allergy See Verified 01/05/19 05:49 Comments Sulfa (Sulfonamide Allergy See Verified 01/05/19 05:49 Antibiotics) Comments codeine AdvReac Nausea Verified 01/05/19 05:49 Date of admission: 01/05/19 10:42 Primary care physician: PCP NONE Consults: 01/05/19 09:59 Consult to Neurology [CONS] Stat Consulting Provider: [facility] Reason for Consult: 2 syncopal episodes, persistent dizziness Time Notified: 09:59 Call Completed: Yes Discharging clinician: Anand Blake - Constitutional Vitals: Temp Pulse Resp BP Pulse Ox 98.1 F 70 16 174/96 97 01/06/19 15:12 01/06/19 15:12 01/06/19 15:12 01/06/19 15:12 01/06/19 15:12 Exam: Exam General: In no acute distress. Respiratory exam: CTAB. no accessory muscle use, rales, rhonchi, wheezes Cardiovascular exam: RRR, +S1, +S2. no murmur, gallop, rubs. GI/Abdominal exam: Non-tender, Non-distended, normal bowel sounds, soft, no peritoneal signs. Extremities exam: no pedal edema, pulses palpable in b/l lower extremities. no calf tenderness Neurological exam: CN II-XII intact, AO X3, no focal deficits. Skin exam: No skin rash - Patient Status Disposition: Home, Self-Care Condition: Good - Discharge Instructions Follow Up With: Chelsea Kraus DEVELOPMENT ADVISOR [Advanced Practice Nurse] - 01/12/19 1:00 pm Forms: ED Satisfaction Letter - Diet and Activity Activity: increase activity as tolerated
[2019-01-06 17:52] VITALS: BP 143/96
== END 2019-01-06 18:15 | disposition home or self-care (01) ==
LOC: 3BNU 05:49 → EMEROOARM 05:49 → SUATTDRO 10:42 → 3BNU 11:14
PROVIDERS: ADMIT Internal Medicine Nephrology; ATTEND Internal Medicine

== ENCOUNTER 2019-05-16 06:27 | Observation (INO) ==
[2019-05-16] MEDS ORDERED: Nitroglycerin 0.4 MG TAB.SUBL SL PRN (06:51)
[2019-05-16] MEDS ORDERED: 0.9 % Sodium Chloride 500 ML IVC ONE (06:51)
[2019-05-16] MEDS ORDERED: Ondansetron 4 MG/2 ML VIAL IVP ONE (06:51)
[2019-05-16] MEDS ORDERED: Aspirin 81 MG TAB.CHEW PO ONE (06:51)
[2019-05-16] MEDS ORDERED: Morphine Sulfate 2 MG/ML SYRINGE IVP ONE (06:51)
[2019-05-16 07:12] LABS: Basophils % 0.3 %; Eosinophils # 0.1 K/mcL (0.0-0.6); Eosinophils % 0.4 %; Hematocrit 46.2 % (35.3-44.9); Hemoglobin 16.2 g/dL (11.5-15.4); Immature Granulocytes % 0.3 % (0-4); Lymphocytes # 2.3 K/mcL (0.6-4.6); Lymphocytes % 20.1 %; Mean Corpuscular HGB Conc 35.1 g/dL (31.6-35.5); Mean Corpuscular Hemoglobin 32.1 pg (28.0-33.3); Mean Corpuscular Volume 91.5 fL (83.0-100.0); Mean Platelet Volume 9.6 fL (9.4-12.4); Monocytes # 0.9 K/mcL (0.0-1.3); Monocytes % 7.5 %; Neutrophils # 8.1 K/mcL (1.6-8.9); Platelet Count 271 K/mcL (140-400); Red Blood Count 5.05 M/mcL (3.82-4.97); Red Cell Distribution Width 13.2 % (11.5-14.5); Segmented Neutrophils % 71.4 %; White Blood Count 11.3 K/mcL (4.3-11.1)
[2019-05-16 07:25] LABS: INR 1.1; Prothrombin Time 12.2 Seconds (9.4-12.1)
[2019-05-16 07:42] LABS: BUN/Creatinine Ratio 19 (6-26); Bilirubin,Direct 0.2 mg/dL (0.0-0.2); Bilirubin,Total 0.5 mg/dL (0.3-1.0); Blood Urea Nitrogen 13 mg/dL (6-20); Calcium 8.7 mg/dL (8.6-10.3); Carbon Dioxide 25 mEq/L (23-29); Chloride 102 mEq/L (98-107); Glucose 116 mg/dL (70-105); Osmolality,Calculated 285 (280-300); Potassium 3.3 mEq/L (3.5-5.1); Sodium 137 mEq/L (136-145); eGFR For African Americans > 60 (> 60); eGFR For Non-African Americans > 60 (> 60)
[2019-05-16 07:43] LABS: Alanine Aminotransferase 70 Units/L (7-52); Albumin 4.2 g/dL (3.5-5.7); Alkaline Phosphatase 112 Units/L (34-104); Aspartate Amino Transferase 161 Units/L (13-39); Bilirubin,Indirect 0.3 mg/dL (0.0-1.2); Globulin 2.1 g/dL (2.4-3.5); Lipase 114 Units/L (11-82); Total Protein 6.3 g/dL (6.4-8.9); Troponin I < 0.03 ng/mL (< 0.04)
[2019-05-16] MEDS ORDERED: Isovue-370 500 ML BOTTLE IVP ONE (08:35)
[2019-05-16 08:43] LABS: Bilirubin,Urine Negative (Negative); Blood,Urine Negative (Negative); Color,Urine Yellow (Yellow); Glucose,Urine (UA) Normal (Normal); Ketones,Urine Negative (Negative); Leukocyte Esterase,Urine Negative (Negative); Nitrite,Urine Negative (Negative); Protein,Urine 30 mg/dL (Neg-Trace); Specific Gravity,Urine 1.014 (1.010-1.025); Urobilinogen,Urine Normal (Normal)
[2019-05-16 08:46] LABS: Bacteria,Urine None Seen per hpf (None-Few); Hyaline Casts,Urine None Seen per lpf (None-Few); Squamous Epithelial Cell,Urine Many per lpf (None-Few); WBC,Urine 0-3 per hpf (0-3)
[2019-05-16 08:52] LABS: Clarity,Urine Slightly Hazy (Clear)
[2019-05-16] MEDS ORDERED: Promethazine 25 MG in 0.9 % Sodium Chloride 50 ML IVPB ONE (09:32)
[2019-05-16] MEDS ORDERED: *HR* HYDROmorphone (PF) 1 MG/ML SYRINGE IVP ONE (09:32)
[2019-05-16] MEDS ORDERED: Acetaminophen 325 MG TABLET PO PRN (10:05)
[2019-05-16] MEDS ORDERED: Ketorolac 30 MG/ML VIAL IVP PRN (10:05)
[2019-05-16] MEDS ORDERED: Naloxone 0.4 MG/ML INJ IVP PRN (10:05)
[2019-05-16] MEDS ORDERED: *HR* Promethazine 25 MG/ML VIAL IVP PRN (10:08)
[2019-05-16] MEDS: Ringers Solution, Lactated 1,000 ML IVC SCH ×2 (11:42→20:53)
[2019-05-16] MEDS: Pantoprazole 40 MG VIAL IVP SCH (11:42)
[2019-05-16] MEDS: *HR* Heparin 5,000 UNIT/ML VIAL SQ SCH (20:54)
[2019-05-17 05:00] LABS: Basophils % 0.6 %; Eosinophils # 0.1 K/mcL (0.0-0.6); Eosinophils % 1.3 %; Hematocrit 43.7 % (35.3-44.9); Hemoglobin 14.8 g/dL (11.5-15.4); Immature Granulocytes % 0.4 % (0-4); Lymphocytes # 1.9 K/mcL (0.6-4.6); Lymphocytes % 35.2 %; Mean Corpuscular HGB Conc 33.9 g/dL (31.6-35.5); Mean Corpuscular Hemoglobin 31.2 pg (28.0-33.3); Mean Corpuscular Volume 92.2 fL (83.0-100.0); Mean Platelet Volume 9.5 fL (9.4-12.4); Monocytes # 0.5 K/mcL (0.0-1.3); Platelet Count 241 K/mcL (140-400); Red Blood Count 4.74 M/mcL (3.82-4.97); Red Cell Distribution Width 13.2 % (11.5-14.5); Segmented Neutrophils % 53.5 %
[2019-05-17 05:04] LABS: Neutrophils # 2.8 K/mcL (1.6-8.9); White Blood Count 5.3 K/mcL (4.3-11.1)
[2019-05-17] MEDS: *HR* Heparin 5,000 UNIT/ML VIAL SQ SCH ×2 (05:18→18:27)
[2019-05-17 05:19] LABS: BUN/Creatinine Ratio 16 (6-26); Blood Urea Nitrogen 9 mg/dL (6-20); Calcium 8.1 mg/dL (8.6-10.3); Carbon Dioxide 27 mEq/L (23-29); Chloride 110 mEq/L (98-107); Glucose 84 mg/dL (70-105); Osmolality,Calculated 292 (280-300); Potassium 3.6 mEq/L (3.5-5.1); Sodium 142 mEq/L (136-145); eGFR For African Americans > 60 (> 60); eGFR For Non-African Americans > 60 (> 60)
[2019-05-17] MEDS: Ringers Solution, Lactated 1,000 ML IVC SCH ×2 (05:19→18:27)
[2019-05-17 05:37] LABS: Albumin 3.5 g/dL (3.5-5.7); Albumin/Globulin Ratio 2.2 (1.1-2.2); Bilirubin,Direct 0.2 mg/dL (0.0-0.2); Bilirubin,Indirect 0.7 mg/dL (0.0-1.2); Bilirubin,Total 0.9 mg/dL (0.3-1.0); Globulin 1.6 g/dL (2.4-3.5); Total Protein 5.1 g/dL (6.4-8.9)
[2019-05-17 09:18] LABS: Albumin 3.6 g/dL (3.5-5.7); Albumin/Globulin Ratio 2.1 (1.1-2.2); Bilirubin,Direct 0.2 mg/dL (0.0-0.2); Bilirubin,Indirect 0.7 mg/dL (0.0-1.2); Bilirubin,Total 0.9 mg/dL (0.3-1.0); Globulin 1.7 g/dL (2.4-3.5); Total Protein 5.3 g/dL (6.4-8.9)
[2019-05-17] MEDS: Pantoprazole 40 MG VIAL IVP SCH (09:25)
[2019-05-17] MEDS: Nicotine 21 MG PATCH.TD24 TD SCH (12:05)
[2019-05-17] MEDS ORDERED: traMADol 50 MG TABLET PO PRN (13:03)
[2019-05-17] MEDS: amLODIPine 5 MG TABLET PO SCH (13:55)
[2019-05-17 23:52] LABS: Hepatitis B Surface Antigen Nonreactive (Nonreactive)
[2019-05-18] MEDS: Ringers Solution, Lactated 1,000 ML IVC SCH ×3 (00:02→09:12)
[2019-05-18 00:23] LABS: Hepatitis A Antibody IgM Nonreactive (Nonreactive); Hepatitis C Virus Antibody Nonreactive (Nonreactive)
[2019-05-18 00:25] LABS: Hepatitis B Core IgM Nonreactive (Nonreactive)
[2019-05-18] MEDS ORDERED: *HR* OxyCODONE Immed Rel 5 MG TABLET PO ONE (00:30)
[2019-05-18] MEDS ORDERED: Melatonin 3 MG TABLET PO PRN (00:31)
[2019-05-18 04:55] LABS: Alanine Aminotransferase 346 Units/L (7-52); Albumin 3.7 g/dL (3.5-5.7); Albumin/Globulin Ratio 2.2 (1.1-2.2); Alkaline Phosphatase 141 Units/L (34-104); Aspartate Amino Transferase 171 Units/L (13-39); BUN/Creatinine Ratio 15 (6-26); Bilirubin,Total 0.4 mg/dL (0.3-1.0); Blood Urea Nitrogen 8 mg/dL (6-20); Calcium 8.6 mg/dL (8.6-10.3); Carbon Dioxide 26 mEq/L (23-29); Chloride 107 mEq/L (98-107); Globulin 1.7 g/dL (2.4-3.5); Glucose 83 mg/dL (70-105); Osmolality,Calculated 289 (280-300); Potassium 3.4 mEq/L (3.5-5.1); Sodium 141 mEq/L (136-145); Total Protein 5.4 g/dL (6.4-8.9); eGFR For African Americans > 60 (> 60); eGFR For Non-African Americans > 60 (> 60)
[2019-05-18] MEDS: *HR* Heparin 5,000 UNIT/ML VIAL SQ SCH (05:37)
[2019-05-18] MEDS: Pantoprazole 40 MG VIAL IVP SCH (09:13)
[2019-05-18] MEDS: amLODIPine 5 MG TABLET PO SCH (09:13)
[2019-05-18] MEDS: Nicotine 21 MG PATCH.TD24 TD SCH (09:13)
[2019-05-18 09:50] VITALS: BP 149/94
[2019-05-18] MEDS ORDERED: Potassium Chloride Elixir 20 MEQ/15 ML UDC PO SCH (10:30)
[2019-05-18] MEDS ORDERED: FLU Vac QV 19-20 (6Month+)/PF 0.5 ML SYRINGE IM ONE (10:47)
[2019-05-19 10:35] LABS: ANA IgG by ELISA NONE DETECTED (None Detected)
[2019-05-20 08:47] LABS: Smooth Muscle Ab Titer IgG <1:20 (<1:20)
== END 2019-05-18 11:37 | disposition home or self-care (01) ==
LOC: EMEROOARM 06:27 → 3ANU 06:27 → SUATTDRO 10:11 → 3ANU 10:55
PROVIDERS: ADMIT Internal Medicine; ATTEND Internal Medicine